=== PATIENT | female | born 1945 | race Caucasian/White ===

== ENCOUNTER 2018-04-11 12:18 | Inpatient (IN) ==
[2018-04-11] MEDS ORDERED: OXYCODONE HCL IR 5 MG TAB (IMMEDIATE RELEASE) PO PRN (16:12)
[2018-04-11] MEDS ORDERED: KETOROLAC TROMETHAMINE 15 MG/ML VIAL IV PRN (16:12)
[2018-04-11] MEDS ORDERED: predniSONE 20 MG TAB PO STA (16:20)
[2018-04-11] MEDS: ACETAMINOPHEN 500 MG TAB PO SCH ×2 (17:09→21:25)
--- NOTE | 2018-04-11 19:07 | History & Physical Report ---
Date of Service April 11, 2018 Assessment & Plan (1) Compression fracture: -Admit to [facility] -Referred as a direct admission from [facility] for management of pain control due to L1 compression fracture -Recent history as outlined in HPI -Consult spine orthopedics for possible brace recommendations -Start Tylenol [id number] with IV Toradol and p.o. oxycodone as needed for breakthrough pain -Was started on prednisone taper on 04/04, will increase to 40 mg p.o. x 5 days -Check vitamin D level -PT/OT (2) Hypothyroidism: -Continue levothyroxine (3) Dyslipidemia: -Continue statin (4) DVT prophylaxis: -SQ Lovenox History of Present Illness Chief Complaint: Intractable back pain Primary Care Provider: Mumtaz Kan 72-year-old female who was transferred from [facility] ED for evaluation of intractable back pain and L1 compression fracture. Patient reports that approximately 3 weeks ago she was lifting some heavy items in her home when she subsequently developed low back pain. She reports the pain has been progressively getting worse since that time. She was evaluated by her PCP on . Lumbar spine x-ray was obtained which was negative for acute findings and patient was started on prednisone taper and as needed Flexeril and Valium. Unfortunately she did not have any improvement with these medications and was seen in the ED on 04/08. She was also complaining of abdominal pain at that time. In the ED on 04/08, CT ABD/pelvis showing constipation. Patient was given a Dulcolax suppository. She also received a trigger point injection for her back pain and had improvement in her symptoms. Abdominal pain and distention unfortunately returned and patient was reevaluated in the ED on . Repeat abdominal x-ray demonstrated persistent constipation and patient was given an enema and lactulose. She had a very large bowel movement while in the ED and abdominal symptoms have since resolved. Patient reports she was awoken at 430 this morning with return of severe low back pain. She went back to [facility] ED where a lumbar spine x-ray demonstrated L1 compression fracture and lumbar spine MRI demonstrated mild L1 compression fracture with mild surrounding edema and L4-L5 disc protrusion without high-grade central canal narrowing. Patient was transferred to [facility] for management of pain control. At the time of my exam, patient is resting in bed. She reports her pain is currently well controlled. She reports her abdominal pain and distention have resolved. No other reported symptoms. She denies radiation of the low back pain into the lower extremities, no associated leg numbness or tingling or loss of bladder or bowel function. She denies chest pain shortness of breath. No lightheadedness, dizziness, diaphoresis, syncopal events. She denies vomiting and diarrhea. No fevers or chills. She denies urinary symptoms. Allergies Allergy/AdvReac Type Severity Reaction Status Date / Time clarithromycin [From Biaxin] Allergy Severe Swelling Verified 04/11/18 15:16 of Lip/Tongue/Throat Home Medications Home Medications Medication Instructions Recorded Confirmed Type alendronate [Fosamax] 70 mg PO WK 04/11/18 04/11/18 History aspirin 81 mg PO DAILY 04/11/18 04/11/18 History atorvastatin [Lipitor] 40 mg PO HS 04/11/18 04/11/18 History calcium carbonate-vitamin D3 1 tab PO BID 04/11/18 04/11/18 History [Calcium 500 + D] cyclobenzaprine 5 mg PO TID PRN 04/11/18 04/11/18 History diazepam 5 mg PO TID PRN 04/11/18 04/11/18 History levothyroxine 25 mcg PO DAILY 04/11/18 04/11/18 History polyethylene glycol 3350 [Miralax] 17 g PO DAILY PRN 04/11/18 04/11/18 History prednisone 20 mg PO UD 04/11/18 04/11/18 History Past Med/Surg History Medical History Osteoporosis (Chronic) Dyslipidemia (Chronic) Hypothyroidism (Chronic) Elevated cholesterol (Inactive) History of hysterectomy (Inactive) Hypothyroidism (Inactive) Surgical History History of partial hysterectomy (Chronic) Family History Family/Other Breast cancer Social History Current Living Situation: Spouse Other Information That Helps Us Care for You: No Feels Safe at Home: Yes Safety Concerns: Feels Safe At This Time Smoking Status: Never smoker Do You Dip or Chew Tobacco: No Hx Alcohol Use: No Hx Substance Use: No Beliefs That Will Affect Care: None Preferred Language: Icelandic Communication Ability: Effective Medical Van Driver Required: No Review of Systems ROS per HPI, all other systems reviewed and negative Physical Exam 2 Vital Signs (Past 24 Hours): Last Vital Signs Temp 36.7 C 04/11/18 14:50 Pulse 82 04/11/18 14:50 Resp 16 04/11/18 14:50 BP 132/74 04/11/18 14:50 Pulse Ox 90 04/11/18 14:50 Constitutional: WD/WN, vitals as above Eyes: PERRL, conjunctivae normal, anicteric sclerae ENMT: external ear and nose normal, oropharynx normal Respiratory: normal respiratory effort, lungs clear to auscultation Cardiovascular: Rate/Rhythm: regular rate and regular rhythm Vessels: normal peripheral pulses Extremities: no edema Gastrointestinal (Abdomen): normal bowel sounds, soft, nontender, no hepatosplenomegaly Musculoskeletal: no cyanosis or clubbing, extremities motor strength 5/5 Spine: + straight leg raise positive Skin: no rashes, warm and dry Neurologic: PERRL, EOMI, accommodation nl, no face palsy, no dysarthria Psychiatric: A+Ox3, euthymic affect Code Status & VTE Plan VTE Prophylaxis Plan VTE Prophylaxis will be ordered: Yes Supervising Physician Co-Signing Physician Notes Pt was seen and examined. Agreed with Stephanie JACKSON exam, assessment and plan. 72- year-old female with PMH of osteoporosis, dyslipidemia, hypothyroidism who was transferred from [facility] ED for evaluation of intractable back pain and L1 compression fracture. Pt said that she has been having back pain for about 3 weeks. She said that her back pain got worst in the last few days. Lumbar spine MRI done at [facility] demonstrated mild L1 compression fracture with mild surrounding edema and L4-L5 disc protrusion without high-grade central canal narrowing. Will continue pain control and prednisone. Will consult ortho for the L1 compression. Fall precaution. MD Tyron
[2018-04-11] MEDS: CALCIUM 600MG + VIT D 400 IU TAB PO SCH (21:25)
[2018-04-11] MEDS: DOCUSATE SODIUM 100 MG CAP PO SCH (21:25)
[2018-04-11] MEDS: ATORVASTATIN 40 MG TAB PO SCH (21:25)
[2018-04-12] MEDS: ACETAMINOPHEN 500 MG TAB PO SCH ×2 (05:39→14:01)
[2018-04-12] MEDS: LEVOTHYROXINE SODIUM 25 MCG TABLET PO SCH (05:42)
[2018-04-12 05:55] LABS: Hematocrit (blood only) 43.1 % (37-47); Hemoglobin 13.9 g/dL (12.0-16.0); Mean Corpuscular Hgb Conc 32.3 g/dL (32-36); Mean Corpuscular Volume 92.9 fL (80-100); Mean Platelet Volume 9.4 fL (7.4-10.4); Platelet Count 285 K/uL (130-400); RDW Coefficient of Variation 13.8 % (11.5-14.5); RDW Standard Deviation 46.9 fL (36.4-46.3); Red Blood Count 4.64 M/uL (4.2-5.4); White Blood Count 14.23 K/uL (4.8-10.8)
[2018-04-12 06:05] LABS: Prothrombin Time 10.5 Seconds (9.0-12.0)
[2018-04-12 06:27] LABS: BUN Creatinine Ratio 21.8 (10-20); Calcium 8.8 mg/dl (8.5-10.1); Creatinine Clr Calc Pharmacy 64.2 ml/min; Est GFR (African American) 95.6; Est GFR (Non-African American) 82.5; Potassium 4.3 mmol/L (3.5-5.1)
[2018-04-12] MEDS: ASPIRIN 81 MG ECTAB PO SCH (08:36)
[2018-04-12] MEDS: CALCIUM 600MG + VIT D 400 IU TAB PO SCH ×2 (08:36→20:35)
[2018-04-12] MEDS: predniSONE 20 MG TAB PO SCH (08:37)
[2018-04-12] MEDS: DOCUSATE SODIUM 100 MG CAP PO SCH ×2 (08:42→20:42)
[2018-04-12] MEDS: ENOXAPARIN INJ 40 MG/0.4 ML SYR SQ SCH (08:42)
[2018-04-12] MEDS: POLYETHYLENE (MIRALAX) 17 GM PACK PO SCH (08:43)
--- NOTE | 2018-04-12 08:51 | Consultation Report ---
DATE OF CONSULTATION: 04/11/2018 CHIEF COMPLAINT: Lumbar spine pain. HISTORY OF PRESENT ILLNESS: This is a delightful patient. She is 72. She had an injury to lumbar spine several weeks ago, felt it would improve, it did not. The pain became unbearable for her. She went to her local Emergency Room which is [facility] in [place] and was transferred to [facility] for pain control and evaluation. PAST MEDICAL HISTORY: Positive for hypothyroidism, osteoporosis. No hypertension, COPD, diabetes mellitus. ALLERGIES: BIAXIN. MEDICATIONS: Include aspirin, Lipitor, levothyroxine, MiraLax, and prednisone. PAST SURGICAL HISTORY: Hysterectomy. SOCIAL HISTORY: Nonsmoker, non-ETOH user, does feel safe at home. REVIEW OF SYSTEMS: She denies any blurred vision, double vision, head trauma. She denies any fever, sweats, or chills. Denies any chest pain. There is a slight nausea, but no constipation. Her extremities are intact. She has no complaints of weakness. PHYSICAL EXAMINATION: VITAL SIGNS: Stable, afebrile. HEART AND LUNG: Not auscultated. ABDOMEN: Soft, nontender, bowel sounds are slightly decreased. NEUROLOGIC: Normal, 5/5 strength, good sensation, motor ability. No deficits. DIAGNOSTIC DATA: X-rays demonstrate an acute on subacute compression fracture of the L1 vertebrae. There is no retropulsion. ASSESSMENT: L1 compression fracture. PLAN: Typically, these will respond nicely to conservative measures. We will get her fitted for a brace and pain control. I will follow her daily while she is here. I anticipate her going home within the next 24-48 hours and following up in the office. If she does fail to improve, she would be a reasonable candidate for a kyphoplasty procedure.
[2018-04-12] MEDS ORDERED: LACTULOSE SYRUP 10 GM/15 ML BTL 473 ML PO STA (17:10)
--- NOTE | 2018-04-12 17:21 | Hospitalist Progress Note ---
Date of Service April 12, 2018 Assessment & Plan (1) Compression fracture: Close compression fracture of first lumbra vertebra -Referred as a direct admission from [facility] for management of pain control due Close compression fracture of first lumbra vertebra -Orthopedic service has evaluated the L1 compression fracture and to continue management with back brace and pain medication -continue scheduled Tylenol, offer as needed IV Toradol and p.o. oxycodone for breakthrough pain -Was started on prednisone taper on 04/04/18, will continue as prednisone 40 mg daily for now -continue PT/OT Compression fracture likely a pathological fracture from osteoporosis Vitamin D levels are deficient will start vitamin D at 1000 units daily for now, possibly can benefit from vitamin D 50, 000 units q weekly as outpatient Back pain secondary to compression fracture -pain medications as above Constipation -Miralax -will give Lactulose x 1 (2) Hypothyroidism: -Continue levothyroxine (3) Dyslipidemia: -Continue statin (4) DVT prophylaxis: -SQ Lovenox Subjective Patient has not had bowel movement Patient in back brace Patient denies acute back pain. Tolerating discomfort with acetaminophen Patient able to perform some physical and occupational therapy. Patient denies chest pain or shortness of breath. denies abdominal pain. denies vomiting Physical Exam 2 Vital Signs (Past 24 Hours): Last Vital Signs Temp 36.6 C 04/12/18 16:18 Pulse 88 04/12/18 16:18 Resp 18 04/12/18 16:18 BP 138/82 04/12/18 16:18 Pulse Ox 92 04/12/18 16:18 Constitutional: WD/WN, vitals as above Eyes: normal visual ware by confrontation and EOM intact bilaterally ENMT: external ear and nose normal, oropharynx normal Neck: normal visual inspection and trachea midline Respiratory: normal respiratory effort, lungs clear to auscultation Cardiovascular: RRR, no murmur, no edema Gastrointestinal (Abdomen): normal bowel sounds, soft, nontender, no hepatosplenomegaly Musculoskeletal: back brace is worn Neurologic: PERRL, EOMI, accommodation nl, no face palsy, no dysarthria Psychiatric: A+Ox3, euthymic affect
[2018-04-12] MEDS: CHOLECALCIFEROL 1,000 UNITS TAB PO SCH (19:10)
[2018-04-12] MEDS: ACETAMINOPHEN 325 MG TAB PO SCH ×2 (19:12→22:39)
[2018-04-12] MEDS: ATORVASTATIN 40 MG TAB PO SCH (20:35)
[2018-04-13] MEDS: ACETAMINOPHEN 325 MG TAB PO SCH ×2 (03:00→05:47)
[2018-04-13] MEDS: LEVOTHYROXINE SODIUM 25 MCG TABLET PO SCH (05:47)
[2018-04-13] MEDS ORDERED: SENNA 8.6 MG TAB PO SCH (09:00)
[2018-04-13] MEDS ORDERED: DOCUSATE SODIUM 100 MG CAP PO SCH (09:00)
[2018-04-13] MEDS: CALCIUM 600MG + VIT D 400 IU TAB PO SCH (09:17)
[2018-04-13] MEDS: ENOXAPARIN INJ 40 MG/0.4 ML SYR SQ SCH (09:18)
[2018-04-13] MEDS: ASPIRIN 81 MG ECTAB PO SCH (09:18)
[2018-04-13] MEDS: predniSONE 20 MG TAB PO SCH (09:19)
[2018-04-13] MEDS: CHOLECALCIFEROL 1,000 UNITS TAB PO SCH (09:19)
[2018-04-13] MEDS: DOCUSATE SODIUM 100 MG CAP PO SCH (09:31)
[2018-04-13] MEDS: POLYETHYLENE (MIRALAX) 17 GM PACK PO SCH (09:31)
[2018-04-13] MEDS ORDERED: IBUPROFEN 200 MG TAB PO PRN (10:46)
--- NOTE | 2018-04-13 11:05 | Hospitalist Progress Note ---
Date of Service April 13, 2018 Assessment & Plan (1) Compression fracture: Close compression fracture of first lumbra vertebra -Referred as a direct admission from [facility] for management of pain control due Close compression fracture of first lumbra vertebra -Orthopedic service has evaluated the L1 compression fracture and to continue management with back brace and pain medication -was evaluated by PT/OT -pain generally controlled with Tylenol, also had on medication schedule as inpatient as needed IV Toradol and p.o. oxycodone for breakthrough pain -Was started on prednisone taper on 04/04/18, was given prednisone 40 mg daily as inpatient -Patient can also take home supply of prednisone and cyclobenzaprine for pain [place] PDMP System was checked and patient does not have any current active narcotic medications prior to this hospital presentation Patient prescribed oxycodone 5 mg every 6 hours as needed for severe pain (20 tablets prescribed) Patient prescribed ibupofen 200 mg every 6 hours as needed for moderate pain Patient prescribed acetaminophen 650 mg every 4 hours as needed for mild pain or fever -Discharge to home with back brace; Patient can take off back brace to shower and sleep -Patient should make appointment with orthopedic clinic to see Dr. Vitaliy Woods or his colleagues [facility] [address], [address] [place] [address] Compression fracture likely a pathological fracture from osteoporosis Vitamin D levels are deficient Patient should take Cholecalciferol 1000 units daily and should discuss with primary care doctor if she should start 50,000 units weekly dosing in future Back pain secondary to compression fracture -pain medications as above Constipation resolved Patient prescribed senna and docusate for constipation. Patient can take Miralax at home for constipation (2) Hypothyroidism: -Continue levothyroxine (3) Dyslipidemia: -Continue statin (4) DVT prophylaxis: -SQ Lovenox while inpatient Discharge Diagnosis Closed compression fracture of first lumbar vertebra initial encounter, Osteoporosis with current pathological fracture, Vitamin D deficiency, Constipation Discharge Instructions Discharge to home with back brace; Patient can take off back brace to shower and sleep [place] PDMP System was checked and patient does not have any current active narcotic medications prior to this hospital presentation Patient prescribed oxycodone 5 mg every 6 hours as needed for severe pain (20 tablets prescribed) Patient prescribed ibupofen 200 mg every 6 hours as needed for moderate pain Patient prescribed acetaminophen 650 mg every 4 hours as needed for mild pain or fever Patient can also take home supply of prednisone and cyclobenzaprine forpain Patient prescribed senna and docusate for constipation. Patient can take Miralax at home for constipation Patient should take Cholecalciferol 1000 units daily and should discuss with primary care doctor if she should start 50,000 units weekly dosing in future Appointment 04/18/2018 10:45 AM Provider Mumtaz Kan MD [address], [place] Patient should make appointment with orthopedic clinic to see Dr. Vitaliy Woods or his colleagues [facility] [address], [facility] [address] [place] [address] Subjective Patient made bowel movement No acute distress Patient denies chest pain or shortness of breath. denies abdominal pain. denies vomiting Physical Exam 2 Vital Signs (Past 24 Hours): Last Vital Signs Temp 36.5 C 04/13/18 07:48 Pulse 85 04/13/18 07:48 Resp 16 04/13/18 07:48 BP 126/74 04/13/18 07:48 Pulse Ox 95 04/13/18 07:48 Constitutional: WD/WN, vitals as above Eyes: normal visual ware by confrontation and EOM intact bilaterally ENMT: external ear and nose normal, oropharynx normal Neck: normal visual inspection and trachea midline Respiratory: normal respiratory effort, lungs clear to auscultation Cardiovascular: RRR, no murmur, no edema Gastrointestinal (Abdomen): normal bowel sounds, soft, nontender, no hepatosplenomegaly Musculoskeletal: no cyanosis or clubbing, extremities motor strength 5/5 (has back brace) Head/Neck/Chest: normocephalic and head atraumatic Neurologic: PERRL, EOMI, accommodation nl, no face palsy, no dysarthria Psychiatric: A+Ox3, euthymic affect
--- NOTE | 2018-04-13 11:10 | Discharge Summary ---
Date of Service April 13, 2018 Admission HPI Per Admitting Provider 72-year-old female who was transferred from [facility] ED for evaluation of intractable back pain and L1 compression fracture. Patient reports that approximately 3 weeks ago she was lifting some heavy items in her home when she subsequently developed low back pain. She reports the pain has been progressively getting worse since that time. She was evaluated by her PCP on . Lumbar spine x-ray was obtained which was negative for acute findings and patient was started on prednisone taper and as needed Flexeril and Valium. Unfortunately she did not have any improvement with these medications and was seen in the ED on 04/08. She was also complaining of abdominal pain at that time. In the ED on 04/08, CT ABD/pelvis showing constipation. Patient was given a Dulcolax suppository. She also received a trigger point injection for her back pain and had improvement in her symptoms. Abdominal pain and distention unfortunately returned and patient was reevaluated in the ED on . Repeat abdominal x-ray demonstrated persistent constipation and patient was given an enema and lactulose. She had a very large bowel movement while in the ED and abdominal symptoms have since resolved. Patient reports she was awoken at 430 this morning with return of severe low back pain. She went back to [facility] ED where a lumbar spine x-ray demonstrated L1 compression fracture and lumbar spine MRI demonstrated mild L1 compression fracture with mild surrounding edema and L4-L5 disc protrusion without high-grade central canal narrowing. Patient was transferred to [facility] for management of pain control. At the time of my exam, patient is resting in bed. She reports her pain is currently well controlled. She reports her abdominal pain and distention have resolved. No other reported symptoms. She denies radiation of the low back pain into the lower extremities, no associated leg numbness or tingling or loss of bladder or bowel function. She denies chest pain shortness of breath. No lightheadedness, dizziness, diaphoresis, syncopal events. She denies vomiting and diarrhea. No fevers or chills. She denies urinary symptoms. Admission Exam Per Admitting Provider Constitutional: WD/WN, vitals as above Eyes: PERRL, conjunctivae normal, anicteric sclerae ENMT: external ear and nose normal, oropharynx normal Respiratory: normal respiratory effort, lungs clear to auscultation Cardiovascular: Rate/Rhythm: regular rate and regular rhythm Vessels: normal peripheral pulses Extremities: no edema Gastrointestinal (Abdomen): normal bowel sounds, soft, nontender, no hepatosplenomegaly Musculoskeletal: no cyanosis or clubbing, extremities motor strength 5/5 Spine: + straight leg raise positive Skin: no rashes, warm and dry Neurologic: PERRL, EOMI, accommodation nl, no face palsy, no dysarthria Psychiatric: A+Ox3, euthymic affect Principal Diagnosis Closed compression fracture of first lumbar vertebra initial encounter, Osteoporosis with current pathological fracture, Vitamin D deficiency, Constipation Discharge Exam Constitutional WD/WN, vitals as above Eyes normal visual ware by confrontation and EOM intact bilaterally ENMT external ear and nose normal, oropharynx normal Neck normal visual inspection and trachea midline Respiratory normal respiratory effort, lungs clear to auscultation Cardiovascular RRR, no murmur, no edema Gastrointestinal (Abdomen) normal bowel sounds, soft, nontender, no hepatosplenomegaly Musculoskeletal no cyanosis or clubbing, extremities motor strength 5/5 (has back brace) Head/Neck/Chest: normocephalic and head atraumatic Neurologic PERRL, EOMI, accommodation nl, no face palsy, no dysarthria Psychiatric A+Ox3, euthymic affect Discharge Data Allergies Allergy/AdvReac Type Severity Reaction Status Date / Time clarithromycin [From Biaxin] Allergy Severe Swelling Verified 04/11/18 15:16 of Lip/Tongue/Throat Consultations 04/11/18 15:46 Consult Orthopedic Surgery Routine 04/11/18 15:47 Consult Case Management - Discharge Planning Routine Hospital Course (1) Compression fracture: Close compression fracture of first lumbra vertebra -Referred as a direct admission from [facility] for management of pain control due Close compression fracture of first lumbra vertebra -Orthopedic service has evaluated the L1 compression fracture and to continue management with back brace and pain medication -was evaluated by PT/OT -pain generally controlled with Tylenol, also had on medication schedule as inpatient as needed IV Toradol and p.o. oxycodone for breakthrough pain -Was started on prednisone taper on 04/04/18, was given prednisone 40 mg daily as inpatient -Patient can also take home supply of prednisone and cyclobenzaprine for pain [place] PDMP System was checked and patient does not have any current active narcotic medications prior to this hospital presentation Patient prescribed oxycodone 5 mg every 6 hours as needed for severe pain (20 tablets prescribed) Patient prescribed ibupofen 200 mg every 6 hours as needed for moderate pain Patient prescribed acetaminophen 650 mg every 4 hours as needed for mild pain or fever -Discharge to home with back brace; Patient can take off back brace to shower and sleep -Patient should make appointment with orthopedic clinic to see Dr. Vitaliy Woods or his colleagues [facility] [address] [place] [address] Compression fracture likely a pathological fracture from osteoporosis Vitamin D levels are deficient Patient should take Cholecalciferol 1000 units daily and should discuss with primary care doctor if she should start 50,000 units weekly dosing in future Back pain secondary to compression fracture -pain medications as above Constipation resolved Patient prescribed senna and docusate for constipation. Patient can take Miralax at home for constipation (2) Hypothyroidism: -Continue levothyroxine (3) Dyslipidemia: -Continue statin (4) DVT prophylaxis: -SQ Lovenox while inpatient Discharge Diagnosis Closed compression fracture of first lumbar vertebra initial encounter, Osteoporosis with current pathological fracture, Vitamin D deficiency, Constipation Discharge Instructions Discharge to home with back brace; Patient can take off back brace to shower and sleep [place] PDMP System was checked and patient does not have any current active narcotic medications prior to this hospital presentation Patient prescribed oxycodone 5 mg every 6 hours as needed for severe pain (20 tablets prescribed) Patient prescribed ibupofen 200 mg every 6 hours as needed for moderate pain Patient prescribed acetaminophen 650 mg every 4 hours as needed for mild pain or fever Patient can also take home supply of prednisone and cyclobenzaprine forpain Patient prescribed senna and docusate for constipation. Patient can take Miralax at home for constipation Patient should take Cholecalciferol 1000 units daily and should discuss with primary care doctor if she should start 50,000 units weekly dosing in future Appointment 04/18/2018 10:45 AM Provider Mumtaz Kan MD Department Family Practice [facility] [place] Patient should make appointment with orthopedic clinic to see Dr. Vitaliy Woods or his colleagues [facility] [address], [address] [place] [address] Total Time Total Time Spent Total Time Spent (In Minutes): 40 minutes Total Time Includes: Examination of the Patient, Discharge Planning and Medication Reconciliation Discharge Plan Discharge Items Patient Disposition: Home - Self-Care Reason For Visit: BACK PAIN Discharge Diagnosis: Closed compression fracture of first lumbar vertebra initial encounter, Osteoporosis with current pathological fracture, Vitamin D deficiency, Constipation Condition: Good Discharge Goals: Improve disease control and Improve function Activity: Resume your previous activity Non-emergency contact: Primary Care Provider and Specialist Call non-emergency contact if: you have any medication questions Follow-up/Referrals: Mumtaz Kan M.D. [Primary Care Provider] - Diet: Regular Addtl Provider Instructions: Discharge to home with back brace; Patient can take off back brace [facility] does not have any current active narcotic medications prior to this hospital presentation Patient prescribed oxycodone 5 mg every 6 hours as needed for severe pain (20 tablets prescribed) Patient prescribed ibupofen 200 mg every 6 hours as needed for moderate pain Patient prescribed acetaminophen 650 mg every 4 hours as needed for mild pain or fever Patient can also take home supply of prednisone and cyclobenzaprine forpain Patient prescribed senna and docusate for constipation. Patient can take Miralax at home for constipation Patient should take Cholecalciferol 1000 units daily and should discuss with primary care doctor if she should start 50,000 units weekly dosing in future Appointment 04/18/2018 10:45 AM Provider Mumtaz Kan MD Department Family Practice [facility] [place] Patient should make appointment with orthopedic clinic to see Dr. Vitaliy Woods or his colleagues [facility] [address] [place] [address] Prescriptions: New sennosides [Senokot] 8.6 mg Tablet 17.2 mg PO QAM 30 Days Qty: 60 RF: 0 acetaminophen [Mapap (acetaminophen)] 325 mg Tablet 650 mg PO Q4H PRN (Reason: fever or pain) 5 Days Qty: 60 RF: 0 docusate sodium 100 mg Capsule 100 mg PO BID 30 Days Qty: 60 RF: 0 oxycodone 5 mg Tablet 5 mg PO Q6H PRN (Reason: severe pain) 3 Days Qty: 24 RF: 0 cholecalciferol (vitamin D3) [Vitamin D3] 1,000 unit Tablet 1,000 unit PO QAM 30 Days Qty: 30 RF: 0 ibuprofen 200 mg Tablet 200 mg PO Q6H PRN (Reason: moderate pain) 5 Days Qty: 20 RF: 0 Continue atorvastatin [Lipitor] 40 mg Tablet 40 mg PO HS RF: 0 polyethylene glycol 3350 [Miralax] 17 gram Powder In Packet 17 g PO DAILY PRN (Reason: Constipation) RF: 0 levothyroxine 25 mcg Tablet 25 mcg PO DAILY RF: 0 prednisone 20 mg tablet 20 mg PO UD RF: 0 alendronate [Fosamax] 70 mg Tablet 70 mg PO WK RF: 0 aspirin 81 mg Tablet,Delayed Release (Dr/Ec) 81 mg PO DAILY RF: 0 diazepam 5 mg tablet 5 mg PO TID PRN (Reason: Muscle Spasm) RF: 0 cyclobenzaprine 5 mg tablet 5 mg PO TID PRN (Reason: Muscle Spasm) RF: 0 calcium carbonate-vitamin D3 [Calcium 500 + D] 500 mg(1,250mg) -200 unit Tablet 1 tab PO BID RF: 0 Stand-Alone Forms: [facility] Discharge Orders: Discharge Order (Routine); Ordered 04/13/18 Ordered By: Dg Lam Admission Data Admit Date/Time: 04/11/18 15:46 Attending Provider: Dg Lam Admit Provider: Prerna Ackerman Primary Care Provider: Mumtaz Kan Other Providers: Vitaliy Woods Service: Medical
== END 2018-04-13 11:41 | disposition home or self-care (01) | DRG 544 ==
LOC: 3W → SUATTDRO 15:46

== ENCOUNTER 2020-07-01 09:46 | Inpatient (IN) ==
[2020-07-01] MEDS ORDERED: HYDROmorphone INJ 0.5 MG/0.5 ML SYR IV PRN (10:12)
[2020-07-01] MEDS ORDERED: ONDANSETRON INJ 2 MG/ML 2 ML VIAL IV STA (10:12)
[2020-07-01] MEDS ORDERED: SODIUM CHLORIDE 0.9% 1000ML 500 ML IV ONE (10:14)
--- NOTE | 2020-07-01 10:18 | Emergency Department Note ---
Impression & Plan Compression fracture, Osteoporosis, Intractable back pain ED Provider Note NAME: LEYLA MCCLURE AGE: 74 SEX: F : 1945 ARRIVES VIA: Walk-In INFORMANT: Patient, ED PROVIDER(S): Rajiv Garcia MD CHIEF COMPLAINT: L1 fracture HPI: This is a 74-year-old female who has a history of osteoporosis that presents to the emergency department with increasing back pain. The patient reports she was just at her orthopedic office. She reports that she had x-rays done (although these appear to be MRIs) and that these show a new L1 fracture. The patient was then sent to the emergency department for "blood work". She reports the pain started on Tuesday. She reports pain worsens with any type of movement of her spine. She has been taken Tylenol as well as Aleve without improvement in her symptoms. She reports she last had Tylenol this morning. She describes the pain as an aching sensation with radiation outwards. ROS: See above HPI for pertinent positives & negatives. A total of 10 systems r eviewed and were otherwise negative. PAST MEDICAL HISTORY: See Below PAST SURGICAL HISTORY: See Below FAMILY HISTORY: See Below SOCIAL HISTORY: See Below HOME MEDICATIONS: See Below ALLERGIES: See Below VITALS: See Below PHYSICAL EXAMINATION: VITAL SIGNS - Vital signs and nursing notes were reviewed. GENERAL - 74-year-old female appearing stated age who is in no acute distress. Communicates well with provider and answers questions appropriately. SKIN - Without rashes. HEAD - NC/AT. EYES - PERRL with EOMI bilaterally. Sclera anicteric. Palpebral conjunctiva pink and moist with no injection noted. EARS - No deformities of external structures noted on gross examination bilaterally. No pain elicited with palpation of the tragus bilaterally. External auditory canals without discharge or otorrhea. Tympanic membranes pearly wetzel without retraction or bulging. No fluid or purulent material visualized behind the TM. Handle of malleus, umbo, cone of light, pars tensa/flaccid all easily visualized. NOSE - Midline and without cyanosis. No epistaxis or purulent drainage noted. Septum midline without deviation or septal hematoma noted. MOUTH/OROPHARYNX - Without perioral cyanosis. Buccal mucosa pink and moist and without leukoplakia. Tongue midline with equal elevation of palate bilaterally. No tonsillar hypertrophy, erythema, or exudates noted. NECK - Neck with FROM. Supple to palpation. No nuchal rigidity. LUNGS - Chest wall symmetric without accessory muscle use, intercostals retractions, or central cyanosis. Normal vesicular breath sounds CTA B/L. No wheezes, rales, or rhonchi appreciated. CARDIAC - RRR with S1/S2. No murmur, rubs, or gallops appreciated. ABDOMEN - Abdominal contour without pulsations or visible masses. BS normoactive all four quadrants. No tenderness, palpable masses, hepatosplenomegaly, or ascites noted. EXTREMITIES - No clubbing or peripheral cyanosis. No pretibial edema present. +3/5 radial, posterior tibial, and dorsalis pedis pulses palpated throughout. +5/5 strength noted in UE/LE bilaterally. NEUROLOGIC - Cranial nerves II through XII grossly intact. Sensory intact to light touch throughout. Patellar reflexes +2/4. PSYCH - A&Ox3 and cooperates fully with examiner. Pt is very pleasant and interacts well with examiner. MEDICAL DECISION MAKING: Patient was seen and evaluated as above in room C8. Review was performed of nursing notes and vital signs. I did review pertinent previous visits and pat ient history. After obtaining a thorough history and physical examination the above work up was performed. This 74-year-old female who presents the emergency department complaining of multiple back fractures. Her orthopedic surgeon sent her in to rule out multiple myeloma. To make sure this were not pathologic fractures the patient was sent for CAT scan of the chest as well as abdomen pelvis however this does not show any evidence of lesions. The patient does have multiple back fractures. She was given Dilaudid here for her pain. Repeat examination revealed improvement in the patient's symptoms. I did discuss the case with the hospitalist service who did agree to admit the patient. Patient and family are in agreement with the treatment plan. An order was placed for continuous cardiac monitoring. The monitor shows a rate of 81 with Normal SInus rhythm. Triage Nursing notes reviewed. Prior medical records reviewed Vital Signs: reviewed and remarkable for no significant abnormalities Differential diagnosis: Infection, dehydration, metabolic abnormality, hypo/hyperglycemia, electrolyte disturbance, anemia, hypoxia, cardiac sources, intracerebral event, toxicologic, neurologic, as well as other pathologies. ER treatment provided: See below Diagnostics interpreted by me: ECG: EKG shows normal sinus rhythm normal EKG QTC is 445 ventricular rate is 73, no ST elevation or depression EKG is compared to 05/12/2020 no significant change was found. Laboratory studies: As stated above and show below. 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, under surveillance Osteoporosis Osteoporosis Restless leg syndrome Surgical History H/O kyphoplasty History of colonoscopy History of esophagogastroduodenoscopy (EGD) History of partial hysterectomy History of tonsillectomy and adenoidectomy Family History Family/Other Breast cancer Other No family history of adverse response to anesthesia Social History Smoking Status: Never smoker Second Hand Exposure: Yes ( A CHILD FOR SHORT PERIOD); Hx Alcohol Use: No Hx Substance Use: No Preferred Language: Georgian Communication Ability: Effective 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 Required: No Beliefs That Will Affect Care: None marital status: Current Living Situation: Spouse Feels Safe at Home: Yes Assistive Devices: Glasses Allergies Allergies Allergy/AdvReac Type Severity Reaction Status Date / Time clarithromycin [From Biaxin] Allergy Severe Swelling Verified 07/01/20 11:13 of Lip/Tongue/Throat Home Meds Home Medications Medication Instructions Recorded Confirmed atorvastatin [Lipitor] 40 mg PO HS 04/11/18 07/01/20 calcium carbonate-vitamin D3 1 tab PO BID 04/11/18 07/01/20 [Calcium 500 + D] levothyroxine 25 mcg PO QAM 04/11/18 07/01/20 polyethylene glycol 3350 [Miralax] 17 g PO DAILY PRN 04/11/18 07/01/20 [place] 1 spray NA QAM 05/09/20 07/01/20 Prolia 60 mg SUBCUT UD 05/09/20 07/01/20 cholecalciferol (vitamin D3) 25 mcg PO QAM 05/09/20 07/01/20 [Vitamin D3] omeprazole 20 mg PO BID 05/09/20 07/01/20 Results & Data (ED) Vital Signs Vital Signs - 24 hr 07/01/20 09:56 07/01/20 10:31 07/01/20 12:44 Temperature 36.5 C Temperature Source Temporal Artery Scan Pulse Rate 81 64 Pulse Rate from SpO2 Sensor 65 Respiratory Rate 18 17 Blood Pressure 152/73 H 146/74 H Blood Pressure Mean 99 98 Pulse Oximetry 99 99 95 Oxygen Delivery Method Room Air Room Air Sepsis Recent Fever Within 48 Hours No Sepsis New/Unexplained Change in Mental Status N/A Sepsis Action Taken by Nursing No Action Required 07/01/20 13:30 07/01/20 14:36 Temperature Temperature Source Pulse Rate 69 63 Pulse Rate from SpO2 Sensor 70 Respiratory Rate 16 14 Blood Pressure 145/71 H Blood Pressure Mean 95 Pulse Oximetry 95 96 Oxygen Delivery Method Room Air Sepsis Recent Fever Within 48 Hours Sepsis New/Unexplained Change in Mental Status Sepsis Action Taken by Correction Medications Current Medication List: was personally reviewed by me Laboratory Data Attestation: I reviewed the patient's lab results. Result diagrams: 07/01/20 10:12 07/01/20 10:40 Lab Results 07/01/20 07/01/20 07/01/20 Range/Units 10:12 10:40 10:40 WBC 8.00 (4.8-10.8) K/uL RBC 4.28 (4.2-5.4) M/uL Hgb 13.1 (12.0-16.0) g/dL Hct 40.5 (37-47) % MCV 94.6 (80-100) fL MCH 30.6 (25-34) pg MCHC 32.3 (32-36) g/dL RDW Std Deviation 49.6 H (36.4-46.3) fL RDW Coeff of Daniel 14.3 (11.5-14.5) % Plt Count 306 (130-400) K/uL MPV 9.9 (7.4-10.4) fL Immature Gran % (Auto) 0.3 % Neut % (Auto) 40.1 % Lymph % (Auto) 30.5 % Faulk % (Auto) 25.5 % Eos % (Auto) 2.3 % Baso % (Auto) 1.3 % Neut # (Auto) 3.22 (1.4-6.5) K/uL Lymph # (Auto) 2.44 (1.2-3.4) K/uL Faulk # (Auto) 2.04 H (0.11-0.59) K/uL Eos # (Auto) 0.18 (0-0.5) K/uL Baso # (Auto) 0.10 (0-0.2) K/uL Immature Gran # (Auto) 0.02 (0.00-0.02) K/uL Sodium 141 (136-145) mmol/L Potassium 3.8 (3.5-5.1) mmol/L Chloride 110 H (98-107) mmol/L Carbon Dioxide 24 (21-32) mmol/L Anion Gap 7.0 (3-11) BUN 12 (7-18) mg/dl Creatinine 0.48 L (0.6-1.2) mg/dl Est Cr Clr Drug Dosing 82.5 ml/min Est GFR ( Amer) 110.4 Est GFR (Non-Af Amer) 95.3 BUN/Creatinine Ratio 24.9 H (10-20) Glucose 87 (70-99) mg/dl Calcium 9.0 (8.5-10.1) mg/dl Total Bilirubin 0.9 (0.2-1) mg/dl AST 16 (15-37) U/L ALT 19 (12-78) U/L Alkaline Phosphatase 112 (45-117) U/L Troponin I < 0.015 (0-0.045) ng/ml Total Protein 7.9 (6.4-8.2) gm/dl Total Protein (PEP) Cancelled Albumin 3.9 (3.4-5.0) gm/dl Albumin (PEP) Cancelled Globulin 4.0 (2.5-4.0) gm/dl Albumin/Globulin Ratio 1.0 (0.9-2) Hpgov-6-Smtyfjrjv Cancelled Hqqqr-7-Yvevunycn Cancelled Dhoa-5-Feojlepu Cancelled Hnbm-9-Ggsowifc Cancelled Gamma Globulins Cancelled Monoclonal Peak 3 Cancelled Ser Monoclonl Protein Cancelled Ser Monoclonal Prot 2 Cancelled PEP Interpretation Cancelled TSH 2.850 (0.300-4.500) uIu/ml Urine Color Urine Appearance (Clear) Urine pH (4.5-7.5) Ur Specific [place] (1.000-1.030) Urine Protein (Negative) Urine Glucose (UA) (Negative) Urine Ketones (Negative) Urine Blood (Negative) Urine Nitrite (Negative) Urine Bilirubin (Negative) Urine Urobilinogen (Negative) Ur Leukocyte Esterase (Negative) Urine WBC (Auto) (0-5) /hpf Urine RBC (Auto) (0-4) /hpf U Hyaline Cast (Auto) (0-5) /lpf U Epithel Cells (Auto) (0-5) /lpf Urine Bacteria (Auto) (Negative) COVID-19 Eval Order SARS-CoV-2 (PCR) (Negative) Influenza Type A (PCR) (Neg) Influenza Type B (PCR) (Neg) RSV (RT-PCR) (Neg) 07/01/20 07/01/20 07/01/20 Range/Units 12:16 12:50 12:50 WBC (4.8-10.8) K/uL RBC (4.2-5.4) M/uL Hgb (12.0-16.0) g/dL Hct (37-47) % MCV (80-100) fL MCH (25-34) pg MCHC (32-36) g/dL RDW Std Deviation (36.4-46.3) fL RDW Coeff of Daniel (11.5-14.5) % Plt Count (130-400) K/uL MPV (7.4-10.4) fL Immature Gran % (Auto) % Neut % (Auto) % Lymph % (Auto) % Faulk % (Auto) % Eos % (Auto) % Baso % (Auto) % Neut # (Auto) (1.4-6.5) K/uL Lymph # (Auto) (1.2-3.4) K/uL Faulk # (Auto) (0.11-0.59) K/uL Eos # (Auto) (0-0.5) K/uL Baso # (Auto) (0-0.2) K/uL Immature Gran # (Auto) (0.00-0.02) K/uL Sodium (136-145) mmol/L Potassium (3.5-5.1) mmol/L Chloride (98-107) mmol/L Carbon Dioxide (21-32) mmol/L Anion Gap (3-11) BUN (7-18) mg/dl Creatinine (0.6-1.2) mg/dl Est Cr Clr Drug Dosing ml/min Est GFR ( Amer) Est GFR (Non-Af Amer) BUN/Creatinine Ratio (10-20) Glucose (70-99) mg/dl Calcium (8.5-10.1) mg/dl Total Bilirubin (0.2-1) mg/dl AST (15-37) U/L ALT (12-78) U/L Alkaline Phosphatase (45-117) U/L Troponin I (0-0.045) ng/ml Total Protein (6.4-8.2) gm/dl Total Protein (PEP) Albumin (3.4-5.0) gm/dl Albumin (PEP) Globulin (2.5-4.0) gm/dl Albumin/Globulin Ratio (0.9-2) Wcxcc-3-Qojkooljr Moaje-0-Dumxlzput Iidu-5-Cyaiqhxc Fnet-4-Nsnehekr Gamma Globulins Monoclonal Peak 3 Ser Monoclonl Protein Ser Monoclonal Prot 2 PEP Interpretation TSH (0.300-4.500) uIu/ml Urine Color Yellow Urine Appearance Clear (Clear) Urine pH 7.0 (4.5-7.5) Ur Specific [place] 1.013 (1.000-1.030) Urine Protein Negative (Negative) Urine Glucose (UA) Negative (Negative) Urine Ketones Negative (Negative) Urine Blood Trace H (Negative) Urine Nitrite Negative (Negative) Urine Bilirubin Negative (Negative) Urine Urobilinogen Negative (Negative) Ur Leukocyte Esterase Negative (Negative) Urine WBC (Auto) 1-5 (0-5) /hpf Urine RBC (Auto) 0-4 (0-4) /hpf U Hyaline Cast (Auto) 1-5 (0-5) /lpf U Epithel Cells (Auto) 0-5 (0-5) /lpf Urine Bacteria (Auto) Negative (Negative) COVID-19 Eval Order [facility]Rsv at [facility] SARS-CoV-2 (PCR) NEGATIVE (Negative) Influenza Type A (PCR) Negative (Neg) Influenza Type B (PCR) Negative (Neg) RSV (RT-PCR) Negative (Neg) Administered Medications Lidocaine (Lidocaine 5% 1 Patch) 1 patch TD QAM ANTONIETTA Stop: 07/31/20 10:14 Last Admin: 07/01/20 10:46 Dose: 1 patch Documented by: [id number] Discontinued Medications Hydromorphone HCl (Hydromorphone Inj 0.5 Mg/0.5 Ml Syr) 0.5 mg IV Q15M PRN PRN Reason: Pain Stop: 07/15/20 10:11 Last Admin: 07/01/20 10:46 Dose: 0.5 mg Documented by: [id number] Sodium Chloride (Nss 1000ml) 500 mls @ 999 mls/hr IV .Q31M ONE Stop: 07/01/20 10:44 Last Infusion: 07/01/20 12:17 Dose: 0 mls/hr Documented by: [id number] Admin: 07/01/20 10:46 Dose: 999 mls/hr Documented by: [id number] Ioversol (Optiray 300 100ml) 89 ml IV ONCE ONE Stop: 07/01/20 11:54 Last Admin: 07/01/20 11:53 Dose: 89 ml Documented by: [id number] Ondansetron HCl (Ondansetron Inj 2 Mg/Ml 2 Ml Vial) 4 mg IV NOW STA Stop: 07/01/20 10:13 Last Admin: 07/01/20 10:46 Dose: 4 mg Documented by: [id number] Imaging Data Radiologist's Impression: Abdomen/Pelvis CT 07/01/20 10:12 CT SCAN OF THE ABDOMEN AND PELVIS WITH IV CONTRAST; CT SCAN OF THE LUMBAR SPINE WITHOUT IV CONTRAST CLINICAL HISTORY: Low back pain. Reported history of pathologic fracture. COMPARISON STUDY: No priors. TECHNIQUE: Following the IV administration of 89 cc of Optiray 300, CT scan of the abdomen and pelvis is performed from the lung bases to the proximal femora. Additionally, CT scan of the lumbar spine is performed from the lower thoracic spine to sacrum. Images for both examinations are reviewed in the axial, sagittal, and coronal planes. IV contrast was administered without complication. A dose lowering technique was utilized adhering to the principles of ALARA. FINDINGS: Lung bases: The heart is mildly enlarged and without pericardial effusion. The lung bases are clear noting bibasilar scarring/atelectasis. There is a moderate hiatal hernia. Liver: The contrast-enhanced liver is normal in size, contour, and attenuation. There is no intrahepatic biliary ductal dilatation. The hepatic veins and portal veins are patent. There our 3 indeterminant hepatic hypodensities which measure up to 1.0 cm. Gallbladder: Unremarkable. Spleen: Normal in size and attenuation. Pancreas: Unremarkable. Adrenal glands: Unremarkable. Kidneys: The contrast enhanced kidneys are normal in size and without hydronephrosis. The kidneys enhance symmetrically. A retroaortic left renal vein is incidentally noted. A 3 mm nonobstructing calculus is noted in the interpolar right kidney. A 1.6 cm cyst is noted in the left upper pole. Abdominal vasculature: The abdominal aorta is normal in course and caliber noting moderate atherosclerotic calcification. Bowel: There is mild colonic diverticulosis without CT evidence of acute di verticulitis. No bowel obstruction is seen. Mild to moderate fecal retention is noted throughout the colon. The appendix is not visualized. Peritoneum: There is no intraperitoneal free air or abdominal ascites. There is a fat-containing umbilical hernia. Lymphadenopathy: None. Pelvic viscera: The bladder is distended but otherwise normal in appearance. The uterus is surgically absent. No adnexal lesion is seen. Skeletal structures: The skeletal structures are osteopenic. No lytic or blastic lesions are seen. Vertebroplasty change is partially visualized and body of T8. There is a minimal chronic inferior endplate compression deformity of T12. See below for discussion of the lumbar spine. The bony pelvis and proximal femora appear intact. There is a healed right pubic ring fracture. LUMBAR SPINE: There is a chronic compression deformity of L1 with mild loss of height and evidence of previous vertebroplasty. Fragments are retropulsed by up to 6 mm. There is an acute to subacute appearing compression fracture of L3 with fjnd-fj-dybpgnwp loss of height and fragments retropulsed by up to 5 mm. Paravertebral edema is noted at this level. There is a minimal superior end plate compression deformity of L2. A large hemangioma is noted in the body of L4 and a mild compression deformity of L1. These are age indeterminant. A small hemangioma is seen in the body of T12. The transverse and spinous processes are intact. There is no evidence of spondylolysis. The disc spaces appear maintained. There is no CT evidence of large disc herniation. Mild facet arthro janis is noted in the lower lumbar region. There is fatty atrophy of the paraspinous musculature. IMPRESSION: 1. There are no acute infectious or inflammatory findings in the abdomen or pelvis. 2. There is an acute to subacute appearing compression fracture of L3 with mild to moderate loss of height and retropulsed fragments up to 5 mm. 3. Additional chronic appearing thoracolumbar compression deformities as above with evidence of previous vertebroplasty. 4. No destructive bony lesion is identified to suggest pathologic fracture. Correlation with the patient's medical/oncological history will be required. 5. Right-sided nephrolithiasis. 6. Bladder distention. 7. Colonic diverticulosis without CT evidence of acute diverticulitis. 8. Additional findings as above. ACT 112: Negative or not required by law. Electronically signed by: Alejandro Hoover M.D. 07/01/2020 12:[address] 07/01/20 10:12 CT OF THE CHEST WITH IV CONTRAST CLINICAL HISTORY: L1 pathologic fracture COMPARISON STUDY: No previous studies for comparison. TECHNIQUE: Following IV administration of 89 mL of Optiray, helical axial images of the chest were obtained. Sagittal and coronal reconstructions were viewed as well as maximal intensity projections on an independent 3-D workstation. Automated exposure control was utilized for the study. A dose lowering technique was utilized adhering to the principles of ALARA. FINDINGS: No enlarged axillary, mediastinal or hilar lymph nodes are present. The heart is mildly enlarged. A moderate sized hiatal hernia is present. There is no pneumothorax or pleural effusion. Linear and groundglass opacities within the lungs favor atelectasis. The central airways are patent. There are no foci of consolidation to suggest pneumonia. CT of the abdomen and pelvis and thoracic spine will be reported separately. A T5 compression fracture is noted. There are old compression fractures of T8 and L1 status post vertebroplasty at these levels. IMPRESSION: 1. No acute process within the chest. 2. Multiple thoracic and lumbar spine compression fractures better depicted on t he spine CTs. Please see this report for further description. 3. Moderate sized hiatal hernia. 4. Mild cardiomegaly. ACT 112: Negative or not required by law. Electronically signed by: Jamar Linares M.D. 07/01/2020 12:[address] 07/01/20 10:12 CT SCAN OF THE ABDOMEN AND PELVIS WITH IV CONTRAST; CT SCAN OF THE LUMBAR SPINE WITHOUT IV CONTRAST CLINICAL HISTORY: Low back pain. Reported history of pathologic fracture. COMPARISON STUDY: No priors. TECHNIQUE: Following the IV administration of 89 cc of Optiray 300, CT scan of the abdomen and pelvis is performed from the lung bases to the proximal femora. Additionally, CT scan of the lumbar spine is performed from the lower thoracic spine to sacrum. Images for both examinations are reviewed in the axial, sagittal, and coronal planes. IV contrast was administered without complication. A dose lowering technique was utilized adhering to the principles of ALARA. FINDINGS: Lung bases: The heart is mildly enlarged and without pericardial effusion. The lung bases are clear noting bibasilar scarring/atelectasis. There is a moderate hiatal hernia. Liver: The contrast-enhanced liver is normal in size, contour, and attenuation. There is no intrahepatic biliary ductal dilatation. The hepatic veins and portal veins are patent. There our 3 indeterminant hepatic hypodensities which measure up to 1.0 cm. Gallbladder: Unremarkable. Spleen: Normal in size and attenuation. Pancreas: Unremarkable. Adrenal glands: Unremarkable. Kidneys: The contrast enhanced kidneys are normal in size and without hydronephrosis. The kidneys enhance symmetrically. A retroaortic left renal vein is incidentally noted. A 3 mm nonobstructing calculus is noted in the interpolar right kidney. A 1.6 cm cyst is noted in the left upper pole. Abdominal vasculature: The abdominal aorta is normal in course and caliber no ting moderate atherosclerotic calcification. Bowel: There is mild colonic diverticulosis without CT evidence of acute diverticulitis. No bowel obstruction is seen. Mild to moderate fecal retention is noted throughout the colon. The appendix is not visualized. Peritoneum: There is no intraperitoneal free air or abdominal ascites. There is a fat-containing umbilical hernia. Lymphadenopathy: None. Pelvic viscera: The bladder is distended but otherwise normal in appearance. The uterus is surgically absent. No adnexal lesion is seen. Skeletal structures: The skeletal structures are osteopenic. No lytic or blastic lesions are seen. Vertebroplasty change is partially visualized and body of T8. There is a minimal chronic inferior endplate compression deformity of T12. See below for discussion of the lumbar spine. The bony pelvis and proximal femora appear intact. There is a healed right pubic ring fracture. LUMBAR SPINE: There is a chronic compression deformity of L1 with mild loss of height and evidence of previous vertebroplasty. Fragments are retropulsed by up to 6 mm. There is an acute to subacute appearing compression fracture of L3 with [id number] loss of height and fragments retropulsed by up to 5 mm. Paravertebral edema is noted at this level. There is a minimal superior end plate compression deformity of L2. A large hemangioma is noted in the body of L4 and a mild compression deformity of L1. These are age indeterminant. A small hemangioma is seen in the body of T12. The transverse and spinous processes are intact. There is no evidence of spondylolysis. The disc spaces appear maintained. There is no CT evidence of large disc herniation. Mild facet arthropathy is noted in the lower lumbar region. There is fatty atrophy of the paraspinous musculature. IMPRESSION: 1. There are no acute infectious or inflammatory findings in the abdomen or p camille. 2. There is an acute to subacute appearing compression fracture of L3 with mild to moderate loss of height and retropulsed fragments up to 5 mm. 3. Additional chronic appearing thoracolumbar compression deformities as above with evidence of previous vertebroplasty. 4. No destructive bony lesion is identified to suggest pathologic fracture. Correlation with the patient's medical/oncological history will be required. 5. Right-sided nephrolithiasis. 6. Bladder distention. 7. Colonic diverticulosis without CT evidence of acute diverticulitis. 8. Additional findings as above. ACT 112: Negative or not required by law. Electronically signed by: Alejandro Hoover M.D. 07/01/2020 12:[address] 07/01/20 10:[address] CLINICAL HISTORY: T8, L1 fracture COMPARISON STUDY: Thoracic spine fluoroscopic images May 16, 2020. TECHNIQUE: Images of the thoracic spine were obtained. Sagittal and coronal reconstructions were viewed. Automated exposure control was utilized for the study. A dose lowering technique was utilized adhering to the principles of ALARA. FINDINGS: Note is made of old T8 and L1 compression fracture status post vertebroplasty at these levels. Note is made of a 4 mm of retropulsion at the level of the superior endplate of L1. There is slight concavity of the inferior endplate of T12. Note is made of a severe T5 compression fracture is 75% loss of vertebral body height. There is 3 mm of retropulsion at the level of the superior endplate of T5. There is no significant central canal stenosis. No additional thoracic spine fractures are present. Facet joints are intact. Mild multilevel degenerative changes are present. Chest CT will be reported separately. IMPRESSION: 1. Age indeterminate severe compression fracture of T5 with 75% loss of vertebral body height and minimal retropulsion of 3 mm. 2. Old T8 and L1 compression fracture status post vertebroplasty at these levels. 3. Mild concavity of the inferior endplate of T12. ACT 112: Negative or not required by law. Electronically signed by: Jamar Linares M.D. 07/01/2020 12:22 PM Discharge Plan Visit Data Chief Complaint: Back Injury/Pain Stated Complaint: SEVERE BACK PAIN ED Provider: Rajiv Garcia Discharge Problem: Compression fracture, Osteoporosis, Intractable back pain Patient Disposition: Admitted As Inpatient Discharge Instructions Interventions: ED Discharge Assessment Last Done: 07/01/20 15:41 Discharge Problem: Osteoporosis Qualifiers: Osteoporosis type: unspecified Presence of current pathological fracture: unspecified Qualified Code(s): M81.0 - Age-related osteoporosis without current pathological fracture
[2020-07-01] MEDS: LIDOCAINE 5% 1 PATCH TD SCH (10:46)
[2020-07-01 11:06] LABS: Basophils % (auto) 1.3 %; Eosinophils # (auto) 0.18 K/uL (0-0.5); Eosinophils % (auto) 2.3 %; Hematocrit (blood only) 40.5 % (37-47); Hemoglobin 13.1 g/dL (12.0-16.0); Immature Granulocytes # (auto) 0.02 K/uL (0.00-0.02); Immature Granulocytes % (auto) 0.3 %; Lymphocytes # (auto) 2.44 K/uL (1.2-3.4); Lymphocytes % (auto) 30.5 %; Mean Corpuscular Hemoglobin 30.6 pg (25-34); Mean Corpuscular Hgb Conc 32.3 g/dL (32-36); Mean Corpuscular Volume 94.6 fL (80-100); Mean Platelet Volume 9.9 fL (7.4-10.4); Monocytes # (auto) 2.04 K/uL (0.11-0.59); Monocytes % (auto) 25.5 %; Neutrophils # (auto) 3.22 K/uL (1.4-6.5); Neutrophils % (auto) 40.1 %; Platelet Count 306 K/uL (130-400); RDW Coefficient of Variation 14.3 % (11.5-14.5); RDW Standard Deviation 49.6 fL (36.4-46.3); Red Blood Count 4.28 M/uL (4.2-5.4)
[2020-07-01 11:23] LABS: Alanine Aminotransferase 19 U/L (12-78); Albumin Level 3.9 gm/dl (3.4-5.0); Aspartate Aminotransferase 16 U/L (15-37); BUN Creatinine Ratio 24.9 (10-20); Blood Urea Nitrogen 12 mg/dl (7-18); Carbon Dioxide 24 mmol/L (21-32); Chloride 110 mmol/L (98-107); Creatinine Clr Calc Pharmacy 82.5 ml/min; Est GFR (African American) 110.4; Est GFR (Non-African American) 95.3; Glucose 87 mg/dl (70-99); Potassium 3.8 mmol/L (3.5-5.1); Sodium 141 mmol/L (136-145)
[2020-07-01 11:33] LABS: Alkaline Phosphatase 112 U/L (45-117); Bilirubin,Total 0.9 mg/dl (0.2-1); Total Protein 7.9 gm/dl (6.4-8.2); Troponin I < 0.015 ng/ml (0-0.045)
[2020-07-01] MEDS ORDERED: OPTIRAY 300 100mL IV ONE (11:53)
--- NOTE | 2020-07-01 12:18 | CT Scan Report ---
CT OF THE CHEST WITH IV CONTRAST CLINICAL HISTORY: L1 pathologic fracture COMPARISON STUDY: No previous studies for comparison. TECHNIQUE: Following IV administration of 89 mL of Optiray, helical axial images of the chest were o btained. Sagittal and coronal reconstructions were viewed as well as maximal intensity projections o n an independent 3-D workstation. Automated exposure control was utilized for the study. A dose low ering technique was utilized adhering to the principles of ALARA. FINDINGS: No enlarged axillary, mediastinal or hilar lymph nodes are present. The heart is mildly en larged. A moderate sized hiatal hernia is present. There is no pneumothorax or pleural effusion. Line ar and groundglass opacities within the lungs favor atelectasis. The central airways are patent. Ther e are no foci of consolidation to suggest pneumonia. CT of the abdomen and pelvis and thoracic spine will be reported separately. A T5 compression fracture is noted. There are old compression fractures of T8 and L1 status post vertebroplasty at these levels. IMPRESSION: 1. No acute process within the chest. 2. Multiple thoracic and lumbar spine compression fractures better depicted on the spine CTs. Please see this report for further description. 3. Moderate sized hiatal hernia. 4. Mild cardiomegaly. ACT 112: Negative or not required by law. Electronically signed by: Jamar Linares M.D. 07/01/2020 12:17 PM
--- NOTE | 2020-07-01 12:23 | CT Scan Report ---
CT SCAN OF THE ABDOMEN AND PELVIS WITH IV CONTRAST; CT SCAN OF THE LUMBAR SPINE WITHOUT IV CONTRAST CLINICAL HISTORY: Low back pain. Reported history of pathologic fracture. COMPARISON STUDY: No priors. TECHNIQUE: Following the IV administration of 89 cc of Optiray 300, CT scan of the abdomen and pelvi s is performed from the lung bases to the proximal femora. Additionally, CT scan of the lumbar spine is performed from the lower thoracic spine to sacrum. Images for both examinations are reviewed in th e axial, sagittal, and coronal planes. IV contrast was administered without complication. A dose lowe ring technique was utilized adhering to the principles of ALARA. FINDINGS: Lung bases: The heart is mildly enlarged and without pericardial effusion. The lung bases are clear n oting bibasilar scarring/atelectasis. There is a moderate hiatal hernia. Liver: The contrast-enhanced liver is normal in size, contour, and attenuation. There is no intrahepa tic biliary ductal dilatation. The hepatic veins and portal veins are patent. There our 3 indetermina nt hepatic hypodensities which measure up to 1.0 cm. Gallbladder: Unremarkable. Spleen: Normal in size and attenuation. Pancreas: Unremarkable. Adrenal glands: Unremarkable. Kidneys: The contrast enhanced kidneys are normal in size and without hydronephrosis. The kidneys enh ance symmetrically. A retroaortic left renal vein is incidentally noted. A 3 mm nonobstructing calcul us is noted in the interpolar right kidney. A 1.6 cm cyst is noted in the left upper pole. Abdominal vasculature: The abdominal aorta is normal in course and caliber noting moderate atheroscle rotic calcification. Bowel: There is mild colonic diverticulosis without CT evidence of acute diverticulitis. No bowel obs truction is seen. Mild to moderate fecal retention is noted throughout the colon. The appendix is no t visualized. Peritoneum: There is no intraperitoneal free air or abdominal ascites. There is a fat-containing umbi lical hernia. Lymphadenopathy: None. Pelvic viscera: The bladder is distended but otherwise normal in appearance. The uterus is surgically absent. No adnexal lesion is seen. Skeletal structures: The skeletal structures are osteopenic. No lytic or blastic lesions are seen. Ve rtebroplasty change is partially visualized and body of T8. There is a minimal chronic inferior endpl ate compression deformity of T12. See below for discussion of the lumbar spine. The bony pelvis and p roximal femora appear intact. There is a healed right pubic ring fracture. LUMBAR SPINE: There is a chronic compression deformity of L1 with mild loss of height and evidence of previous vertebroplasty. Fragments are retropulsed by up to 6 mm. There is an acute to subacute appe aring compression fracture of L3 with [id number] loss of height and fragments retropulsed by up to 5 mm. Paravertebral edema is noted at this level. There is a minimal superior end plate compressi on deformity of L2. A large hemangioma is noted in the body of L4 and a mild compression deformity of L1. These are age indeterminant. A small hemangioma is seen in the body of T12. The transverse and s pinous processes are intact. There is no evidence of spondylolysis. The disc spaces appear maintained . There is no CT evidence of large disc herniation. Mild facet arthropathy is noted in the lower lumb ar region. There is fatty atrophy of the paraspinous musculature. IMPRESSION: 1. There are no acute infectious or inflammatory findings in the abdomen or pelvis. 2. There is an acute to subacute appearing compression fracture of L3 with mild to moderate loss of h eight and retropulsed fragments up to 5 mm. 3. Additional chronic appearing thoracolumbar compression deformities as above with evidence of previ ous vertebroplasty. 4. No destructive bony lesion is identified to suggest pathologic fracture. Correlation with the rafal ent's medical/oncological history will be required. 5. Right-sided nephrolithiasis. 6. Bladder distention. 7. Colonic diverticulosis without CT evidence of acute diverticulitis. 8. Additional findings as above. ACT 112: Negative or not required by law. Electronically signed by: Alejandro Hoover M.D. 07/01/2020 12:22 PM
--- NOTE | 2020-07-01 12:24 | CT Scan Report ---
THORACIC SPINE CT CLINICAL HISTORY: T8, L1 fracture COMPARISON STUDY: Thoracic spine fluoroscopic images May 16, 2020. TECHNIQUE: Images of the thoracic spine were obtained. Sagittal and coronal reconstructions were view ed. Automated exposure control was utilized for the study. A dose lowering technique was utilized ad obed to the principles of ALARA. FINDINGS: Note is made of old T8 and L1 compression fracture status post vertebroplasty at these leve ls. Note is made of a 4 mm of retropulsion at the level of the superior endplate of L1. There is slig ht concavity of the inferior endplate of T12. Note is made of a severe T5 compression fracture is 75% loss of vertebral body height. There is 3 mm of retropulsion at the level of the superior endplate o f T5. There is no significant central canal stenosis. No additional thoracic spine fractures are pres ent. Facet joints are intact. Mild multilevel degenerative changes are present. Chest CT will be repo rted separately. IMPRESSION: 1. Age indeterminate severe compression fracture of T5 with 75% loss of vertebral body height and min imal retropulsion of 3 mm. 2. Old T8 and L1 compression fracture status post vertebroplasty at these levels. 3. Mild concavity of the inferior endplate of T12. ACT 112: Negative or not required by law. Electronically signed by: Jamar Linares M.D. 07/01/2020 12:22 PM
[2020-07-01 12:38] LABS: Appearance Urine Clear (Clear); Bacteria Urine Automated Negative (Negative); Bilirubin Urine Negative (Negative); Blood Urine Trace (Negative); Color Urine Yellow; Epithelial Cell Urine Auto 0-5 /lpf (0-5); Glucose Urine UA Negative (Negative); Ketones Urine Negative (Negative); Leukocyte Esterase Urine Negative (Negative); Nitrite Urine Negative (Negative); Protein Urine Negative (Negative); RBC Urine Automated 0-4 /hpf (0-4); Specific Gravity Urine 1.013 (1.000-1.030); Urobilinogen Urine Negative (Negative)
--- NOTE | 2020-07-01 13:31 | History & Physical Report ---
Date of Service July 01, 2020 Assessment & Plan (1) Intractable back pain: (2) Compression fracture: This is a 74yo F with a PMH of osteoporosis, hypothyroidism, and other medical problems listed below who presents with worsening back pain over the past 3 days and was found to have compression fractures at L3 and L5. History of kyphoplasty to T1 in [address] [facility] after developing acute back pain with compression fracture of L1 and compression fracture of T8 and underwent T8 kyphoplasty in April [address] Bethea at [facility] Presenting with worsening pain over the weekend, sent from ortho spine for further evaluation Thoracic spine CT with age indeterminate severe compression fracture of T5 with 75% loss of vertebral body height and minimal retropulsion of [address] with an acute to subacute appearing compression fracture of L3 with mild to moderate loss of height and retropulsed fragments up to [address] Bethea of ortho spine to evaluate patient Pain control (3) Osteoporosis: Follows with rheum. On Prolia for 15 years. Also supplementing with Ca and vitamin D Repeat vitamin D levels (4) IgM lambda monoclonal gammopathy: Per chart review, history of IgM lambda monoclonal gammopathy per 05/06/20 lab work Patient without knowledge and no evidence of follow up to lab work, per chart review Today's workup without lytic lesions on imaging, renal function wnl, normal calcium. SPEP, UPEP pending Would recommend hematology follow up (5) Hypothyroidism: Continue levothyroxine (6) Dyslipidemia: Continue atorvastatin DVT Ppx: SCDs Code status: FULL PCP: Betzy Dispo: Admitted to med/surg. Plan to return home once medically stable. Patient seen in collaboration with Dr. Lim. Please see addendum. History of Present Illness Chief Complaint: back pain Primary Care Provider: Caro Bo, This is a 74yo F with a PMH of osteoporosis, hypothyroidism, and other medical problems listed below who presents with worsening back pain over the past 3 days. Patient with history of kyphoplasty to T1 in [address] [facility] after developing acute back pain with compression fracture of L1. Back pain recurred in April of this year and patient was found to have compression fracture of T8 and underwent T8 kyphoplasty by Dr. Bethea at [facility]. Pain improved initially but worsened again over the weekend. Pain is in lower R back and upper buttocks and denies radiation across spine or down RLE. Exacerbated with movement. Slight impro vement with ice and alternating Aleve and extra strength tylenol. Was seen by ortho spine group earlier today with and was found to have an acute to subacute appearing compression fracture of L3 with mild to moderate loss of height and retropulsed fragments up to 5 mm and age indeterminate severe compression fracture of T5 with 75% loss of vertebral body height and minimal retropulsion of 3 mm. Does have known history of osteoporosis and has been on alendronate for past 15 years. Denies fever, chills, lightheadedness, headache, chest pain, SOB, nausea, vomiting, abdominal pain, dysuria, diarrhea or constipation. Per chart review, history of IgM lambda monoclonal gammopathy per 05/06/20 lab work. Allergies Allergy/AdvReac Type Severity Reaction Status Date / Time clarithromycin [From Biaxin] Allergy Severe Swelling Verified 07/01/20 11:13 of Lip/Tongue/Throat Home Medications Medication Instructions Recorded Confirmed Type atorvastatin [Lipitor] 40 mg PO HS 04/11/18 07/01/20 History calcium carbonate-vitamin D3 1 tab PO BID 04/11/18 07/01/20 History [Calcium 500 + D] levothyroxine 25 mcg PO QAM 04/11/18 07/01/20 History polyethylene glycol 3350 [Miralax] 17 g PO DAILY PRN 04/11/18 07/01/20 History [place] 1 spray NA QAM 05/09/20 07/01/20 History Prolia 60 mg SUBCUT UD 05/09/20 07/01/20 History cholecalciferol (vitamin D3) 25 mcg PO QAM 05/09/20 07/01/20 History [Vitamin D3] omeprazole 20 mg PO BID 05/09/20 07/01/20 History Past Med/Surg History Medical History (Updated 07/01/20 @ 15:05 by Trixie Millan PA-C) Dyslipidemia History of stomach ulcers 12/2019 (on preventative PPI) Hypothyroidism IgM lambda monoclonal gammopathy "small" per 05/06/20 labs, under surveillance Osteoporosis Osteoporosis Restless leg syndrome Surgical History H/O kyphoplasty History of colonoscopy History of esophagogastroduodenoscopy (EGD) History of partial hysterectomy History of tonsillectomy and adenoidectomy Family History Family/Other Breast cancer Other No family history of adverse response to anesthesia Social History Smoking Status: Never smoker Second Hand Exposure: Yes ( A CHILD FOR SHORT PERIOD); Hx Alcohol Use: No Hx Substance Use: No Preferred Language: Spanish Communication Ability: Effective Medical Tech Required: No Beliefs That Will Affect Care: None marital status: Current Living Situation: Spouse Feels Safe at Home: Yes Assistive Devices: Glasses Review of Systems Review of Systems: At least ten systems reviewed and negative except as noted in the HPI. Physical Exam Physical Exam: General Appearance: WD/WN, vitals as above, NAD, sitting up in bed, pleasant, in acute pain Head: normocephalic, atraumatic Eyes: normal inspection, PERRL, conjunctivae normal, anicteric sclerae ENT: external ear and nose normal, oropharynx normal Neck: normal visual inspection, trachea midline, no thyromegaly Respiratory: normal respiratory effort, lungs clear to auscultation, no wheeze, rales, rhonchi. No accessory muscle use Cardiovascular: regular rate, rhythm, no murmur appreciated, normal peripheral pulses, no BLE edema. Vessels: no JVD Chest: normal inspection of chest Abdomen/GI: normal bowel sounds, soft, nontender, no hepatosplenomegaly Extremities/Musculoskeletal: TTP at R lumbar spine extending down to PSIS. No cyanosis or clubbing, extremities motor strength 5/5 Neurologic: PERRL, EOMI, accommodation nl, no face palsy, no dysarthria, CN's II-XI intact bilaterally and moves all extremities Psychiatric: A+Ox3, euthymic affect Skin: no rashes, normal color, warm/dry Results & Data Results & Data ([facility]) Vital Signs (Past 12 Hours) Vital Signs Temp Pulse Resp BP Pulse Ox 07/01/20 12:44 64 17 146/74 H 95 07/01/20 10:31 99 07/01/20 09:56 36.5 C 81 18 152/73 H 99 Laboratory Results Short CBC 07/01/20 Range/Units 10:12 WBC 8.00 (4.8-10.8) K/uL Hgb 13.1 (12.0-16.0) g/dL Hct 40.5 (37-47) % Plt Count 306 (130-400) K/uL BMP 07/01/20 10:40 Sodium 141 Potassium 3.8 Chloride 110 H Carbon Dioxide 24 BUN 12 Creatinine 0.48 L Glucose 87 Calcium 9.0 Cardiac Enzymes 07/01/20 Range/Units 10:40 Troponin I < 0.015 (0-0.045) ng/ml Liver Function 07/01/20 Range/Units 10:40 Total Bilirubin 0.9 (0.2-1) mg/dl AST 16 (15-37) U/L ALT 19 (12-78) U/L Alkaline Phosphatase 112 (45-117) U/L Albumin 3.9 (3.4-5.0) gm/dl Urine 07/01/20 Range/Units 12:16 Urine Color Yellow Urine Appearance Clear (Clear) Urine pH 7.0 (4.5-7.5) Ur Specific [place] 1.013 (1.000-1.030) Urine Protein Negative (Negative) Urine Glucose (UA) Negative (Negative) Diagnostic Findings Abdomen/Pelvis CT 07/01/20 10:12 CT SCAN OF THE ABDOMEN AND PELVIS WITH IV CONTRAST; CT SCAN OF THE LUMBAR SPINE WITHOUT IV CONTRAST CLINICAL HISTORY: Low back pain. Reported history of pathologic fracture. COMPARISON STUDY: No priors. TECHNIQUE: Following the IV administration of 89 cc of Optiray 300, CT scan of the abdomen and pelvis is performed from the lung bases to the proximal femora. Additionally, CT scan of the lumbar spine is performed from the lower thoracic spine to sacrum. Images for both examinations are reviewed in the axial, sagittal, and coronal planes. IV contrast was administered without complication. A dose lowering technique was utilized adhering to the principles of ALARA. FINDINGS: Lung bases: The heart is mildly enlarged and without pericardial effusion. The lung bases are clear noting bibasilar scarring/atelectasis. There is a moderate hiatal hernia. Liver: The contrast-enhanced liver is normal in size, contour, and attenuation. There is no intrahepatic biliary ductal dilatation. The hepatic veins and portal veins are patent. There our 3 indeterminant hepatic hypodensities which measure up to 1.0 cm. Gallbladder: Unremarkable. Spleen: Normal in size and attenuation. Pancreas: Unremarkable. Adrenal glands: Unremarkable. Kidneys: The contrast enhanced kidneys are normal in size and without hydronephrosis. The kidneys enhance symmetrically. A retroaortic left renal vein is incidentally noted. A 3 mm nonobstructing calculus is noted in the interpolar right kidney. A 1.6 cm cyst is noted in the left upper pole. Abdominal vasculature: The abdominal aorta is normal in course and caliber noting moderate atherosclerotic calcification. Bowel: There is mild colonic diverticulosis without CT evidence of acute diverticulitis. No bowel obstruction is seen. Mild to moderate fecal retention is noted throughout the colon. The appendix is not visualized. Peritoneum: There is no intraperitoneal free air or abdominal ascites. There is a fat-containing umbilical hernia. Lymphadenopathy: None. Pelvic viscera: The bladder is distended but otherwise normal in appearance. The uterus is surgically absent. No adnexal lesion is seen. Skeletal structures: The skeletal structures are osteopenic. No lytic or blastic lesions are seen. Vertebroplasty change is partially visualized and body of T8. There is a minimal chronic inferior endplate compression deformity of T12. See below for discussion of the lumbar spine. The bony pelvis and proximal femora appear intact. There is a healed right pubic ring fracture. LUMBAR SPINE: There is a chronic compression deformity of L1 with mild loss of height and evidence of previous vertebroplasty. Fragments are retropulsed by up to 6 mm. There is an acute to subacute appearing compression fracture of L3 with [id number] loss of height and fragments retropulsed by up to 5 mm. Paravertebral edema is noted at this level. There is a minimal superior end plate compression deformity of L2. A large hemangioma is noted in the body of L4 and a mild compression deformity of L1. These are age indeterminant. A small hemangioma is seen in the body of T12. The transverse and spinous processes are intact. There is no evidence of spondylolysis. The disc spaces appear maintained. There is no CT evidence of large disc herniation. Mild facet arthropathy is noted in the lower lumbar region. There is fatty atrophy of the paraspinous musculature. IMPRESSION: 1. There are no acute infectious or inflammatory findings in the abdomen or pelvis. 2. There is an acute to subacute appearing compression fracture of L3 with mild to moderate loss of height and retropulsed fragments up to 5 mm. 3. Additional chronic appearing thoracolumbar compression deformities as above with evidence of previous vertebroplasty. 4. No destructive bony lesion is identified to suggest pathologic fracture. Correlation with the patient's medical/oncological history will be required. 5. Right-sided nephrolithiasis. 6. Bladder distention. 7. Colonic diverticulosis without CT evidence of acute diverticulitis. 8. Additional findings as above. ACT 112: Negative or not required by law. Electronically signed by: Alejandro Hoover M.D. 07/01/2020 12:[address] 07/01/20 10:12 CT OF THE CHEST WITH IV CONTRAST CLINICAL HISTORY: L1 pathologic fracture COMPARISON STUDY: No previous studies for comparison. TECHNIQUE: Following IV administration of 89 mL of Optiray, helical axial images of the chest were obtained. Sagittal and coronal reconstructions were viewed as well as maximal intensity projections on an independent 3-D workstation. Automated exposure control was utilized for the study. A dose lowering technique was utilized adhering to the principles of ALARA. FINDINGS: No enlarged axillary, mediastinal or hilar lymph nodes are present. The heart is mildly enlarged. A moderate sized hiatal hernia is present. There is no pneumothorax or pleural effusion. Linear and groundglass opacities within the lungs favor atelectasis. The central airways are patent. There are no foci of consolidation to suggest pneumonia. CT of the abdomen and pelvis and thoracic spine will be reported separately. A T5 compression fracture is noted. There are old compression fractures of T8 and L1 status post vertebroplasty at these levels. IMPRESSION: 1. No acute process within the chest. 2. Multiple thoracic and lumbar spine compression fractures better depicted on the spine CTs. Please see this report for further description. 3. Moderate sized hiatal hernia. 4. Mild cardiomegaly. ACT 112: Negative or not required by law. Electronically signed by: Jamar Linares M.D. 07/01/2020 12:[address] 07/01/20 10:12 CT SCAN OF THE ABDOMEN AND PELVIS WITH IV CONTRAST; CT SCAN OF THE LUMBAR SPINE WITHOUT IV CONTRAST CLINICAL HISTORY: Low back pain. Reported history of pathologic fracture. COMPARISON STUDY: No priors. TECHNIQUE: Following the IV administration of 89 cc of Optiray 300, CT scan of the abdomen and pelvis is performed from the lung bases to the proximal femora. Additionally, CT scan of the lumbar spine is performed from the lower thoracic spine to sacrum. Images for both examinations are reviewed in the axial, sagittal, and coronal planes. IV contrast was administered without complication. A dose lowering technique was utilized adhering to the principles of ALARA. FINDINGS: Lung bases: The heart is mildly enlarged and without pericardial effusion. The lung bases are clear noting bibasilar scarring/atelectasis. There is a moderate hiatal hernia. Liver: The contrast-enhanced liver is normal in size, contour, and attenuation. There is no intrahepatic biliary ductal dilatation. The hepatic veins and portal veins are patent. There our 3 indeterminant hepatic hypodensities which measure up to 1.0 cm. Gallbladder: Unremarkable. Spleen: Normal in size and attenuation. Pancreas: Unremarkable. Adrenal glands: Unremarkable. Kidneys: The contrast enhanced kidneys are normal in size and without hydronephrosis. The kidneys enhance symmetrically. A retroaortic left renal vein is incidentally noted. A 3 mm nonobstructing calculus is noted in the interpolar right kidney. A 1.6 cm cyst is noted in the left upper pole. Abdominal vasculature: The abdominal aorta is normal in course and caliber noting moderate atherosclerotic calcification. Bowel: There is mild colonic diverticulosis without CT evidence of acute diverticulitis. No bowel obstruction is seen. Mild to moderate fecal retention is noted throughout the colon. The appendix is not visualized. Peritoneum: There is no intraperitoneal free air or abdominal ascites. There is a fat-containing umbilical hernia. Lymphadenopathy: None. Pelvic viscera: The bladder is distended but otherwise normal in appearance. The uterus is surgically absent. No adnexal lesion is seen. Skeletal structures: The skeletal structures are osteopenic. No lytic or blastic lesions are seen. Vertebroplasty change is partially visualized and body of T8. There is a minimal chronic inferior endplate compression deformity of T12. See below for discussion of the lumbar spine. The bony pelvis and proximal femora appear intact. There is a healed right pubic ring fracture. LUMBAR SPINE: There is a chronic compression deformity of L1 with mild loss of height and evidence of previous vertebroplasty. Fragments are retropulsed by up to 6 mm. There is an acute to subacute appearing compression fracture of L3 with [id number] loss of height and fragments retropulsed by up to 5 mm. Paravertebral edema is noted at this level. There is a minimal superior end plate compression deformity of L2. A large hemangioma is noted in the body of L4 and a mild compression deformity of L1. These are age indeterminant. A small hemangioma is seen in the body of T12. The transverse and spinous processes are intact. There is no evidence of spondylolysis. The disc spaces appear maintained. There is no CT evidence of large disc herniation. Mild facet arthropathy is noted in the lower lumbar region. There is fatty atrophy of the paraspinous musculature. IMPRESSION: 1. There are no acute infectious or inflammatory findings in the abdomen or pelvis. 2. There is an acute to subacute appearing compression fracture of L3 with mild to moderate loss of height and retropulsed fragments up to 5 mm. 3. Additional chronic appearing thoracolumbar compression deformities as above with evidence of previous vertebroplasty. 4. No destructive bony lesion is identified to suggest pathologic fracture. Correlation with the patient's medical/oncological history will be required. 5. Right-sided nephrolithiasis. 6. Bladder distention. 7. Colonic diverticulosis without CT evidence of acute diverticulitis. 8. Additional findings as above. ACT 112: Negative or not required by law. Electronically signed by: Alejandro Hoover M.D. 07/01/2020 12:[address] 07/01/20 10:[address] CLINICAL HISTORY: T8, L1 fracture COMPARISON STUDY: Thoracic spine fluoroscopic images May 16, 2020. TECHNIQUE: Images of the thoracic spine were obtained. Sagittal and coronal reconstructions were viewed. Automated exposure control was utilized for the s tudy. A dose lowering technique was utilized adhering to the principles of ALARA. FINDINGS: Note is made of old T8 and L1 compression fracture status post vertebroplasty at these levels. Note is made of a 4 mm of retropulsion at the level of the superior endplate of L1. There is slight concavity of the inferior endplate of T12. Note is made of a severe T5 compression fracture is 75% loss of vertebral body height. There is 3 mm of retropulsion at the level of the superior endplate of T5. There is no significant central canal stenosis. No additional thoracic spine fractures are present. Facet joints are intact. Mild multilevel degenerative changes are present. Chest CT will be reported separately. IMPRESSION: 1. Age indeterminate severe compression fracture of T5 with 75% loss of ve rtebral body height and minimal retropulsion of 3 mm. 2. Old T8 and L1 compression fracture status post vertebroplasty at these levels. 3. Mild concavity of the inferior endplate of T12. ACT 112: Negative or not required by law. Electronically signed by: Jamar Linares M.D. 07/01/2020 12:22 PM Supervising Physician Co-Signing Physician Notes I saw this patient with the physician digital sales assistant, I participated in the history, physical, review of systems, and physical exam. I reviewed the medications with the patient and the physician digital sales assistant and helped reconcile the medications. I helped take a detailed family and social history as well. I formulated the assessment and plan personally with the physician digital sales assistant and went over it with the patient. ROS-No Headache, No Visual Changes, No Nausea, No Vomiting, No Fever, No Chills, No Neck Pain or Stiffness, No Chest Pain, No Palpitations, No SOB, No WOLFE, No Cough, No Sputum, No Wheezing, + Abdominal Pain, No Diarrhea, No Hematemesis, No Hemoptysis, No Unexpected Weight Loss, No Flank pain, No Melena, No Hemato chezia, No Frequency, No Urgency, No Burning, No Hematuria, No Rashes, No Diaphoresis. Appetite is Normal, +Back Pain Physical Exam Gen-AAO x 3, NAD, Afebrile, In Pain Head-NCAT, EOMI, PERRLA, Anicteric Sclera, No Posterior Pharyngeal Erythema Neck-Supple, No JVD, No Thyromegaly, No Masses, No LAD, No Bruits Lungs-Clear to Auscultation Bilaterally, No Rales, No Rhonchi, No Wheezing, No Crepitus Chest-No S4, +S1, +S2, No S3, No Murmurs, No Rubs, No Gallops, No Ectopy Abdomen-Soft, Bowel Sounds Present, Non Tender, Non Distended, No Hepatomegaly, No Splenomegaly, No Palpable Masses, No Rebound, No Rigidity, No Guarding Musculoskeletal-Decreased Range of Motion Sec to back pain, No CVAT Extremities-No Cyanosis, No Clubbing, No Edema Nuero-Cranial Nerves II-XII grossly intact, Motor WNL, DTRs WNL, Strength WNL, Non Focal Psych-Normal Mood
[2020-07-01 13:41] LABS: Influenza A virus by PCR Negative (Neg); Influenza B virus by PCR Negative (Neg); RSV by PCR Negative (Neg); SARS CoV2 RNA(COVID-19) InHosp NEGATIVE (Negative)
[2020-07-01] MEDS ORDERED: ONDANSETRON INJ 2 MG/ML 2 ML VIAL IV PRN (16:32)
[2020-07-01] MEDS ORDERED: ACETAMINOPHEN 325 MG TAB PO PRN (16:32)
[2020-07-01] MEDS: ATORVASTATIN 40 MG TAB PO SCH (21:39)
[2020-07-01] MEDS: PANTOprazole 40 MG TAB PO SCH (21:39)
[2020-07-01] MEDS: CALCIUM 600MG + VIT D 400 IU TAB PO SCH (21:39)
[2020-07-01] MEDS: POLYETHYLENE (MIRALAX) 17 GM PACK PO PRN (21:51)
[2020-07-01] MEDS: HYDROmorphone INJ 0.5 MG/0.5 ML SYR IV PRN (21:52)
[2020-07-02 05:53] LABS: Hematocrit (blood only) 38.1 % (37-47); Hemoglobin 12.1 g/dL (12.0-16.0); Mean Corpuscular Hemoglobin 29.9 pg (25-34); Mean Corpuscular Hgb Conc 31.8 g/dL (32-36); Mean Corpuscular Volume 94.1 fL (80-100); Mean Platelet Volume 9.9 fL (7.4-10.4); Platelet Count 275 K/uL (130-400); RDW Coefficient of Variation 14.2 % (11.5-14.5); RDW Standard Deviation 48.9 fL (36.4-46.3); Red Blood Count 4.05 M/uL (4.2-5.4); White Blood Count 7.97 K/uL (4.8-10.8)
[2020-07-02] MEDS: LEVOTHYROXINE SODIUM 25 MCG TABLET PO SCH (06:07)
--- NOTE | 2020-07-02 06:37 | Electrocardiogram Report ---
Test Reason : Blood Pressure : / mmHG Vent. Rate : 073 BPM Atrial Rate : 073 BPM P-R Int : 170 ms QRS Dur : 082 ms QT Int : 404 ms P-R-T Axes : 036 011 027 degrees QTc Int : 445 ms Normal sinus rhythm Normal ECG When compared with ECG of 12-MAY-2020 11:12, No significant change was found Confirmed by Vijay Miles ([id number]) on 07/02/2020 6:36:44 AM Referred By: REFERRED SELF Confirmed By:Vijay Miles
[2020-07-02 06:43] LABS: BUN Creatinine Ratio 25.3 (10-20); Calcium 9.2 mg/dl (8.5-10.1); Creatinine Clr Calc Pharmacy 67.1 ml/min; Est GFR (African American) 103.2; Potassium 4.5 mmol/L (3.5-5.1)
[2020-07-02] MEDS: CALCIUM 600MG + VIT D 400 IU TAB PO SCH ×2 (08:32→20:20)
[2020-07-02] MEDS: CHOLECALCIFEROL 1,000 UNITS 25 MCG TAB PO SCH (08:32)
[2020-07-02] MEDS: PANTOprazole 40 MG TAB PO SCH ×2 (08:32→20:20)
[2020-07-02] MEDS: HYDROmorphone INJ 0.5 MG/0.5 ML SYR IV PRN ×3 (08:42→23:16)
[2020-07-02] MEDS: LIDOCAINE 5% 1 PATCH TD SCH (11:06)
--- NOTE | 2020-07-02 14:49 | Hospitalist Progress Note ---
Date of Service July 02, 2020 Assessment & Plan (1) Intractable back pain: (2) Compression fracture: This is a 74yo F with a PMH of osteoporosis, hypothyroidism, and other medical problems listed below who presents with worsening back pain over the past 3 days and was found to have compression fractures at L3 and L5. History of kyphoplasty to T1 in 2019 at [facility] after developing acute back pain with compression fracture of L1 and compression fracture of T8 and underwent T8 kyphoplasty in April [address] Bethea at [facility] Presenting with worsening pain over the weekend, sent from ortho spine for further evaluation Thoracic spine CT with age indeterminate severe compression fracture of T5 with 75% loss of vertebral body height and minimal retropulsion of [address] with an acute to subacute appearing compression fracture of L3 with mild to moderate loss of height and retropulsed fragments up to [address] Bethea of ortho spine to evaluate patient - suspect she will heal appropriately without surgical intervention as her pain is controlled with oral pain medications at this time. Had a lengthy discussion with this patient regarding surgery. We both agree we will try to avoid another procedure as long as her pain is controlled. She understands if pain becomes intractable again we may have to consider kyphoplasty. This point I recommend she use a walker to ambulate lift no more than 5 pounds. Pain control (3) Osteoporosis: Follows with rheum. On Prolia for 15 years. Also supplementing with Ca and vitamin D Repeat vitamin D levels (4) IgM lambda monoclonal gammopathy: Per chart review, history of IgM lambda monoclonal gammopathy per 05/06/20 lab work Patient without knowledge and no evidence of follow up to lab work, per chart review Today's workup without lytic lesions on imaging, renal function wnl, normal calcium. SPEP, UPEP pending Would recommend hematology follow up (5) Hypothyroidism: Continue levothyroxine (6) Dyslipidemia: Continue atorvastatin DVT Ppx: SCDs Code status: FULL PCP: Betzy Dispo: med/surg. Plan to return home once medically stable. Admission and Anticipated Discharge Date Admission Date: July 01, 2020 Subjective Patient seen in follow-up of back pain, vertebral fracture Currently she is lying in bed, in no acute distress, says that she feels better now Awaiting consultation from Dr. Bethea Denies any fevers, chills, chest pain, shortness of breath, abdominal pain, nausea or vomiting Review of Systems Review of Systems: All systems reviewed & are unremarkable except as noted in HPI & below Constitutional: no fever and no chills Respiratory: no cough and no dyspnea Cardiovascular: no chest pain and no palpitations Gastrointestinal: no abdominal pain, no nausea and no vomiting Physical Exam Physical Exam: General Appearance: WD/WN, NAD, laying in bed in no acute distress Head: normocephalic, atraumatic Eyes: normal inspection, PERRL, EOMI, conjunctivae normal, anicteric sclerae ENT: external ear and nose normal, oropharynx normal Neck: normal visual inspection, trachea midline, no thyromegaly Respiratory: normal respiratory effort, lungs clear to auscultation, no wheeze, rales, rhonchi. No accessory muscle use Cardiovascular: regular rate, rhythm, no murmur appreciated, normal peripheral pulses, no BLE edema. Vessels: no JVD Chest: normal inspection of chest Abdomen/GI: normal bowel sounds, soft, nontender Extremities/Musculoskeletal: Moves extremities spontaneously Neurologic: PERRL, EOMI,no face palsy, no dysarthria, CN's II-XI intact bilaterally and moves all extremities Psychiatric: A+Ox3, euthymic affect Skin: no rashes, normal color, warm/dry Results & Data Results & Data ([facility]) Vital Signs (Past 12 Hours) Vital Signs Temp Pulse Resp BP Pulse Ox 07/02/20 07:45 36.6 C 78 14 129/80 91 Laboratory Results 07/02/20 07/02/20 07/02/20 Range/Units 05:12 05:12 05:12 WBC 7.97 (4.8-10.8) K/uL RBC 4.05 L (4.2-5.4) M/uL Hgb 12.1 (12.0-16.0) g/dL Hct 38.1 (37-47) % MCV 94.1 (80-100) fL MCH 29.9 (25-34) pg MCHC 31.8 L (32-36) g/dL RDW Std Deviation 48.9 H (36.4-46.3) fL RDW Coeff of Daniel 14.2 (11.5-14.5) % Plt Count 275 (130-400) K/uL MPV 9.9 (7.4-10.4) fL Sodium 139 (136-145) mmol/L Potassium 4.5 D (3.5-5.1) mmol/L Chloride 107 (98-107) mmol/L Carbon Dioxide 29 (21-32) mmol/L Anion Gap 3.0 (3-11) BUN 15 (7-18) mg/dl Creatinine 0.59 L (0.6-1.2) mg/dl Est Cr Clr Drug Dosing 67.1 ml/min Est GFR ( Amer) 103.2 Est GFR (Non-Af Amer) 89.0 BUN/Creatinine Ratio 25.3 H (10-20) Glucose 83 (70-99) mg/dl Calcium 9.2 (8.5-10.1) mg/dl 25-OH Vitamin D Total 43.9 (30-100) ng/ml Medications Administered Current Inpatient Medications Acetaminophen (Acetaminophen 325 Mg Tab) 650 mg PO Q4H PRN PRN Reason: pain/fever Stop: 07/31/20 16:31 Atorvastatin Calcium (Atorvastatin 40 Mg Tab) 40 mg PO HS [facility] Stop: 07/31/20 20:59 Last Admin: 07/01/20 21:39 Dose: 40 mg Documented by: Hydromorphone HCl (Hydromorphone Inj 0.5 Mg/0.5 Ml Syr) 0.5 mg IV Q4H PRN PRN Reason: Pain Stop: 07/15/20 16:31 Last Admin: 07/02/20 08:42 Dose: 0.5 mg Documented by: Levothyroxine Sodium (Levothyroxine Sodium 25 Mcg Tablet) 25 mcg PO DAILYBB [facility] Stop: 08/01/20 06:29 Last Admin: 07/02/20 06:07 Dose: 25 mcg Documented by: Lidocaine (Lidocaine 5% 1 Patch) 1 patch TD QAM [facility] Stop: 07/31/20 10:14 Last Admin: 07/02/20 11:06 Dose: 1 patch Documented by: Miscellaneous (Remove Lidoderm Patch) 1 ea N/A DAILY@2100 [facility] Stop: 07/31/20 20:59 Last Admin: 07/01/20 21:39 Dose: 1 ea Documented by: Multivitamins/Minerals (Calcium 600mg + Vit D 400 Iu Tab) 1 tab PO BID [facility] Stop: 07/31/20 20:59 Last Admin: 07/02/20 08:32 Dose: 1 tab Documented by: Ondansetron HCl (Ondansetron Inj 2 Mg/Ml 2 Ml Vial) 4 mg IV Q6H PRN PRN Reason: Nausea Stop: 07/31/20 16:31 Last Admin: 07/01/20 20:00 Dose: 4 mg Documented by: Pantoprazole Sodium (Pantoprazole 40 Mg Tab) 40 mg PO BID [facility] Stop: 07/31/20 20:59 Last Admin: 07/02/20 08:32 Dose: 40 mg Documented by: Polyethylene Glycol (Polyethylene (Miralax) 17 Gm Pack) 17 gm PO DAILY PRN PRN Reason: Constipation Stop: 07/31/20 16:31 Last Admin: 07/01/20 21:51 Dose: 17 gm Documented by: Vitamin D (Cholecalciferol 1,000 Units 25 Mcg Tab) 1,000 units PO QAM [facility] Stop: 08/01/20 08:59 Last Admin: 07/02/20 08:32 Dose: 1,000 units Documented by: (1) Osteoporosis Osteoporosis type: unspecified Presence of current pathological fracture: unspecified Qualified Code(s): M81.0 - Age-related osteoporosis without current pathological fracture
--- NOTE | 2020-07-02 15:15 | Orthopedic Consultation ---
Date of Consultation July 02, 2020 Assessment & Plan (1) Compression fracture: At this time the patient does have evidence of acute compression fracture on imaging. I suspect she will heal appropriately without surgical intervention as her pain is controlled with oral pain medications at this time. I had a lengthy discussion with this patient regarding surgery. We both agree we will try to avoid another procedure as long as her pain is controlled. She understands if he becomes intractable again we may have to consider kyphoplasty. This point I recommend she use a walker to ambulate lift no more than 5 pounds. Present on Admission?: Yes History of Present Illness Reason for Consultation: Severe back pain Attending Physician: Storm Celis MD History of Present Illness This is a 65-year-old female well-known to me the presents with marked decline in status over the past several days. She described pain in the lumbar spine. This began on Tuesday of last week. She denies any precipitating trauma fall or event. It is quite intolerable throughout the weekend. She presents the emergency room for pain control was subsequently admitted. This morning she feels her symptoms are markedly improved with some pain medication. She denies any radicular component to her pain. She has been up and ambulating the halls with assistance in the utilization of a walker. Again she is much more improved today compared to her condition last evening upon being admitted. Allergies Allergy/AdvReac Type Severity Reaction Status Date / Time clarithromycin [From Biaxin] Allergy Severe Swelling Verified 07/01/20 11:13 of Lip/Tongue/Throat Home Medications Medication Instructions Recorded Confirmed Type atorvastatin [Lipitor] 40 mg PO HS 04/11/18 07/01/20 History calcium carbonate-vitamin D3 1 tab PO BID 04/11/18 07/01/20 History [Calcium 500 + D] levothyroxine 25 mcg PO QAM 04/11/18 07/01/20 History polyethylene glycol 3350 [Miralax] 17 g PO DAILY PRN 04/11/18 07/01/20 History [place] 1 spray NA QAM 05/09/20 07/01/20 History Prolia 60 mg SUBCUT UD 05/09/20 07/01/20 History cholecalciferol (vitamin D3) 25 mcg PO QAM 05/09/20 07/01/20 History [Vitamin D3] omeprazole 20 mg PO BID 05/09/20 07/01/20 History Patient History Medical History (Updated 07/01/20 @ 17:06 by Rajiv Garcia MD) Dyslipidemia History of stomach ulcers 12/2019 (on preventative PPI) Hypothyroidism IgM lambda monoclonal gammopathy "small" per 05/06/20 labs, under surveillance Osteoporosis Osteoporosis Restless leg syndrome Surgical History H/O kyphoplasty History of colonoscopy History of esophagogastroduodenoscopy (EGD) History of partial hysterectomy History of tonsillectomy and adenoidectomy Family History Family/Other Breast cancer Other No family history of adverse response to anesthesia Social History Smoking Status: Never smoker Second Hand Exposure: Yes ( A CHILD FOR SHORT PERIOD); Hx Alcohol Use: No Hx Substance Use: No Preferred Language: Montene[place]in Communication Ability: Effective Sack Sewer Machine Required: No Beliefs That Will Affect Care: None marital status: Current Living Situation: Spouse Feels Safe at Home: Yes Assistive Devices: Glasses Physical Exam Physical Exam: On exam I did have the patient stand take a few steps in the room. She is able to do so comfortably. She demonstrated no pain to palpation or percussion of the thoracolumbar spine. Had good strength testing lower extr emities. Results & Data ([facility]) Vital Signs (Past 12 Hours) Vital Signs Temp Pulse Resp BP Pulse Ox 07/02/20 07:45 36.6 C 78 14 129/80 91
[2020-07-02] MEDS: POLYETHYLENE (MIRALAX) 17 GM PACK PO PRN (15:53)
[2020-07-02] MEDS: ATORVASTATIN 40 MG TAB PO SCH (20:20)
[2020-07-03] MEDS: LEVOTHYROXINE SODIUM 25 MCG TABLET PO SCH (06:31)
[2020-07-03 07:12] LABS: Hematocrit (blood only) 40.1 % (37-47); Hemoglobin 12.8 g/dL (12.0-16.0); Mean Corpuscular Hemoglobin 30.3 pg (25-34); Mean Corpuscular Hgb Conc 31.9 g/dL (32-36); Platelet Count 315 K/uL (130-400); RDW Coefficient of Variation 14.2 % (11.5-14.5); RDW Standard Deviation 49.2 fL (36.4-46.3); Red Blood Count 4.22 M/uL (4.2-5.4); White Blood Count 7.65 K/uL (4.8-10.8)
[2020-07-03 07:39] LABS: BUN Creatinine Ratio 29.8 (10-20); Calcium 9.5 mg/dl (8.5-10.1); Creatinine Clr Calc Pharmacy 60.9 ml/min; Est GFR (Non-African American) 86.2 ml/min
[2020-07-03] MEDS: HYDROmorphone INJ 0.5 MG/0.5 ML SYR IV PRN (08:08)
[2020-07-03] MEDS: oxyCODONE HCL IR 5 MG TAB (IMMEDIATE RELEASE) PO PRN ×2 (08:12→17:21)
[2020-07-03] MEDS: CALCIUM 600MG + VIT D 400 IU TAB PO SCH ×2 (08:13→21:22)
[2020-07-03] MEDS: CHOLECALCIFEROL 1,000 UNITS 25 MCG TAB PO SCH (08:13)
[2020-07-03] MEDS: PANTOprazole 40 MG TAB PO SCH ×2 (08:13→21:22)
[2020-07-03] MEDS: LIDOCAINE 5% 1 PATCH TD SCH (09:01)
--- NOTE | 2020-07-03 11:04 | Hospitalist Progress Note ---
Date of Service July 03, 2020 Assessment & Plan (1) Intractable back pain: (2) Compression fracture: This is a 74yo F with a PMH of osteoporosis, hypothyroidism, and other medical problems listed below who presents with worsening back pain over the past 3 days and was found to have compression fractures at L3 and L5. History of kyphoplasty to T1 in 2019 at [facility] after developing acute back pain with compression fracture of L1 and compression fracture of T8 and underwent T8 kyphoplasty in April [address] Bethea at [facility] Presenting with worsening pain over the weekend, sent from ortho spine for further evaluation Thoracic spine CT with age indeterminate severe compression fracture of T5 with 75% loss of vertebral body height and minimal retropulsion of [address] with an acute to subacute appearing compression fracture of L3 with mild to moderate loss of height and retropulsed fragments up to [address] Bethea of ortho spine to evaluate patient - suspect she will heal appropriately without surgical intervention as her pain is controlled with oral pain medications at this time. Had a lengthy discussion with this patient regarding surgery. We both agree we will try to avoid another procedure as long as her pain is controlled. She understands if pain becomes intractable again we may have to consider kyphoplasty. This point I recommend she use a walker to ambulate lift no more than 5 pounds. Pain control (3) Osteoporosis: Follows with rheum. On Prolia for 15 years. Also supplementing with Ca and vitamin D Repeat vitamin D levels (4) IgM lambda monoclonal gammopathy: Per chart review, history of IgM lambda monoclonal gammopathy per 05/06/20 lab work Patient without knowledge and no evidence of follow up to lab work, per chart review Current workup without lytic lesions on imaging, renal function wnl, normal calcium. SPEP, UPEP pending Would recommend hematology follow up (5) Hypothyroidism: Continue levothyroxine (6) Dyslipidemia: Continue atorvastatin DVT Ppx: SCDs Code status: FULL PCP: Dr. Bo Dispo: med/surg. Plan to return home. Admission and Anticipated Discharge Date Admission Date: July 01, 2020 Subjective Patient seen in follow-up of back pain, vertebral fracture Currently she is sitting up in the chair, eating breakfast, in no acute distress, says that she feels better now Denies any fevers, chills, chest pain, shortness of breath, abdominal pain, nausea or vomiting Patient discussed w/ Dr. Bethea yesterday, no recommended surgery at this time, pain well controlled with pain medications at this time. Review of Systems Review of Systems: All systems reviewed & are unremarkable except as noted in HPI & below Constitutional: no fever and no chills Respiratory: no cough and no dyspnea Cardiovascular: no chest pain and no palpitations Gastrointestinal: no abdominal pain, no nausea and no vomiting Physical Exam Physical Exam: General Appearance: WD/WN, NAD, in no acute distress Head: normocephalic, atraumatic Eyes: normal inspection, PERRL, EOMI, conjunctivae normal, anicteric sclerae ENT: external ear and nose normal, oropharynx normal Neck: normal visual inspection, trachea midline, no thyromegaly Respiratory: normal respiratory effort, lungs clear to auscultation, no wheeze, rales, rhonchi. No accessory muscle use Cardiovascular: regular rate, rhythm, no murmur appreciated, normal peripheral pulses, no BLE edema. Vessels: no JVD Chest: normal inspection of chest Abdomen/GI: normal bowel sounds, soft, nontender Extremities/Musculoskeletal: Moves extremities spontaneously Neurologic: PERRL, EOMI,no face palsy, no dysarthria, CN's II-XI intact bilaterally and moves all extremities Psychiatric: A+Ox3, euthymic affect Skin: no rashes, normal color, warm/dry Results & Data Results & Data ([facility]) Vital Signs (Past 12 Hours) Vital Signs Temp Pulse Resp BP BP Pulse Ox 07/03/20 07:23 36.8 C 71 16 129/73 93 07/02/20 23:44 36.7 C 69 17 126/74 93 Laboratory Results 07/03/20 07/03/20 Range/Units 06:33 06:33 WBC 7.65 (4.8-10.8) K/uL RBC 4.22 (4.2-5.4) M/uL Hgb 12.8 (12.0-16.0) g/dL Hct 40.1 (37-47) % MCV 95.0 (80-100) fL MCH 30.3 (25-34) pg MCHC 31.9 L (32-36) g/dL RDW Std Deviation 49.2 H (36.4-46.3) fL RDW Coeff of Daniel 14.2 (11.5-14.5) % Plt Count 315 (130-400) K/uL MPV 10.0 (7.4-10.4) fL Sodium 137 (136-145) mmol/L Potassium 4.0 (3.5-5.1) mmol/L Chloride 104 (98-107) mmol/L Carbon Dioxide 29 (21-32) mmol/L Anion Gap 4.0 (3-11) BUN 19 H (7-18) mg/dl Creatinine 0.65 (0.6-1.2) mg/dl Est Cr Clr Drug Dosing 60.9 ml/min Est GFR ( Amer) 100.0 ml/min Est GFR (Non-Af Amer) 86.2 ml/min BUN/Creatinine Ratio 29.8 H (10-20) Glucose 84 (70-99) mg/dl Calcium 9.5 (8.5-10.1) mg/dl Medications Administered Current Inpatient Medications Acetaminophen (Acetaminophen 325 Mg Tab) 650 mg PO Q4H PRN PRN Reason: pain/fever Stop: 07/31/20 16:31 Atorvastatin Calcium (Atorvastatin 40 Mg Tab) 40 mg PO HS [place] Stop: 07/31/20 20:59 Last Admin: 07/02/20 20:20 Dose: 40 mg Documented by: Diclofenac Sodium (Diclofenac Sod 1% Gel 100 Gm Tube) 2 gm EXT BID [facility] Stop: 08/02/20 11:14 Hydromorphone HCl (Hydromorphone Inj 0.5 Mg/0.5 Ml Syr) 0.5 mg IV Q4H PRN PRN Reason: Pain Stop: 07/15/20 16:31 Last Admin: 07/02/20 23:16 Dose: 0.5 mg Documented by: Levothyroxine Sodium (Levothyroxine Sodium 25 Mcg Tablet) 25 mcg PO DAILYBB [facility] Stop: 08/01/20 06:29 Last Admin: 07/03/20 06:31 Dose: 25 mcg Documented by: Lidocaine (Lidocaine 5% 1 Patch) 1 patch TD QAM [facility] Stop: 07/31/20 10:14 Last Admin: 07/03/20 09:01 Dose: 1 patch Documented by: Miscellaneous (Remove Lidoderm Patch) 1 ea N/A DAILY@2100 [facility] Stop: 07/31/20 20:59 Last Admin: 07/02/20 20:22 Dose: 1 ea Documented by: Multivitamins/Minerals (Calcium 600mg + Vit D 400 Iu Tab) 1 tab PO BID [facility] Stop: 07/31/20 20:59 Last Admin: 07/03/20 08:13 Dose: 1 tab Documented by: Ondansetron HCl (Ondansetron Inj 2 Mg/Ml 2 Ml Vial) 4 mg IV Q6H PRN PRN Reason: Nausea Stop: 07/31/20 16:31 Last Admin: 07/01/20 20:00 Dose: 4 mg Documented by: Oxycodone HCl (Oxycodone Hcl Ir 5 Mg Tab (Immediate Release)) 5 mg PO Q4H PRN PRN Reason: Pain Stop: 07/16/20 17:24 Last Admin: 07/03/20 08:12 Dose: 5 mg Documented by: Pantoprazole Sodium (Pantoprazole 40 Mg Tab) 40 mg PO BID [facility] Stop: 07/31/20 20:59 Last Admin: 07/03/20 08:13 Dose: 40 mg Documented by: Polyethylene Glycol (Polyethylene (Miralax) 17 Gm Pack) 17 gm PO DAILY PRN PRN Reason: Constipation Stop: 07/31/20 16:31 Last Admin: 07/02/20 15:53 Dose: 17 gm Documented by: Vitamin D (Cholecalciferol 1,000 Units 25 Mcg Tab) 1,000 units PO QAM [facility] Stop: 08/01/20 08:59 Last Admin: 07/03/20 08:13 Dose: 1,000 units Documented by: (1) Osteoporosis Osteoporosis type: unspecified Presence of current pathological fracture: unspecified Qualified Code(s): M81.0 - Age-related osteoporosis without current pathological fracture
--- NOTE | 2020-07-03 11:40 | Discharge Summary ---
Date of Service July 04, 2020 Pt discharged on 07/04/2020 Admission HPI Per Admitting Provider This is a 74yo F with a PMH of osteoporosis, hypothyroidism, and other medical problems listed below who presents with worsening back pain over the past 3 days. Patient with history of kyphoplasty to T1 in 2018 at [facility] after developing acute back pain with compression fracture of L1. Back pain recurred in April of this year and patient was found to have compression fracture of T8 and underwent T8 kyphoplasty by Dr. Bethea at [facility]. Pain improved initially but worsened again over the weekend. Pain is in lower R back and upper buttocks and denies radiation across spine or down RLE. Exacerbated with movement. Slight improvement with ice and alternating Aleve and extra strength tylenol. Was seen by ortho spine group earlier today with and was found to have an acute to subacute appearing compression fracture of L3 with mild to moderate loss of height and retropulsed fragments up to 5 mm and age indeterminate severe compression fracture of T5 with 75% loss of vertebral body height and minimal retropulsion of 3 mm. Does have known history of osteoporosis and has been on alendronate for past 15 years. Denies fever, chills, lightheadedness, headache, chest pain, SOB, nausea, vomiting, abdominal pain, dysuria, diarrhea or constipation. Per chart review, history of IgM lambda monoclonal gammopathy per 05/06/20 lab work. Admission Exam Per Admitting Provider General Appearance: WD/WN, vitals as above, NAD, sitting up in bed, pleasant, in acute pain Head: normocephalic, atraumatic Eyes: normal inspection, PERRL, conjunctivae normal, anicteric sclerae ENT: external ear and nose normal, oropharynx normal Neck: normal visual inspection, trachea midline, no thyromegaly Respiratory: normal respiratory effort, lungs clear to auscultation, no wheeze, rales, rhonchi. No accessory muscle use Cardiovascular: regular rate, rhythm, no murmur appreciated, normal peripheral pulses, no BLE edema. Vessels: no JVD Chest: normal inspection of chest Abdomen/GI: normal bowel sounds, soft, nontender, no hepatosplenomegaly Extremities/Musculoskeletal: TTP at R lumbar spine extending down to PSIS. No cyanosis or clubbing, extremities motor strength 5/5 Neurologic: PERRL, EOMI, accommodation nl, no face palsy, no dysarthria, CN's II-XI intact bilaterally and moves all extremities Psychiatric: A+Ox3, euthymic affect Skin: no rashes, normal color, warm/dry Principal Diagnosis Back pain, vertebral fracture Discharge Exam General Appearance: WD/WN, NAD, in no acute distress Head: normocephalic, atraumatic Eyes: normal inspection, PERRL, EOMI, conjunctivae normal, anicteric sclerae ENT: external ear and nose normal, oropharynx normal Neck: normal visual inspection, trachea midline, no thyromegaly Respiratory: normal respiratory effort, lungs clear to auscultation, no wheeze, rales, rhonchi. No accessory muscle use Cardiovascular: regular rate, rhythm, no murmur appreciated, normal peripheral pulses, no BLE edema. Vessels: no JVD Chest: normal inspection of chest Abdomen/GI: normal bowel sounds, soft, nontender Extremities/Musculoskeletal: Moves extremities spontaneously Neurologic: PERRL, EOMI,no face palsy, no dysarthria, CN's II-XI intact bilaterally and moves all extremities Psychiatric: A+Ox3, euthymic affect Skin: no rashes, normal color, warm/dry Discharge Data Allergies Allergy/AdvReac Type Severity Reaction Status Date / Time clarithromycin [From Biaxin] Allergy Severe Swelling Verified 07/01/20 11:13 of Lip/Tongue/Throat Consultations 07/01/20 12:49 Consult Orthopedic Surgery Stat 07/01/20 13:08 ED Decision to Admit Stat 07/01/20 16:32 Consult Orthopedic Surgery Routine Ordered Studies 07/01/20 10:12 CT abd pelvis IV con only Stat IMPRESSION: 1. There are no acute infectious or inflammatory findings in the abdomen or pelvis. 2. There is an acute to subacute appearing compression fracture of L3 with mild to moderate loss of height and retropulsed fragments up to 5 mm. 3. Additional chronic appearing thoracolumbar compression deformities as above with evidence of previous vertebroplasty. 4. No destructive bony lesion is identified to suggest pathologic fracture. Correlation with the patient's medical/oncological history will be required. 5. Right-sided nephrolithiasis. 6. Bladder distention. 7. Colonic diverticulosis without CT evidence of acute diverticulitis. 8. Additional findings in full report. CT chest diagnostic w con Stat IMPRESSION: 1. No acute process within the chest. 2. Multiple thoracic and lumbar spine compression fractures better depicted on the spine CTs. Please see this report for further description. 3. Moderate sized hiatal hernia. 4. Mild cardiomegaly. CT lumbar spine w con Stat IMPRESSION: 1. There are no acute infectious or inflammatory findings in the abdomen or pelvis. 2. There is an acute to subacute appearing compression fracture of L3 with mild to moderate loss of height and retropulsed fragments up to 5 mm. 3. Additional chronic appearing thoracolumbar compression deformities as above with evidence of previous vertebroplasty. 4. No destructive bony lesion is identified to suggest pathologic fracture. Correlation with the patient's medical/oncological history will be required. 5. Right-sided nephrolithiasis. 6. Bladder distention. 7. Colonic diverticulosis without CT evidence of acute diverticulitis. 8. Additional findings in full report. CT thoracic spine w con Stat IMPRESSION: 1. Age indeterminate severe compression fracture of T5 with 75% loss of vertebral body height and minimal retropulsion of 3 mm. 2. Old T8 and L1 compression fracture status post vertebroplasty at these [facility]. 3. Mild concavity of the inferior endplate of T12. Hospital Course (1) Intractable back pain: (2) Compression fracture: This is a 74yo F with a PMH of osteoporosis, hypothyroidism, and other medical problems listed below who presents with worsening back pain over the past 3 days and was found to have compression fractures at L3 and L5. History of kyphoplasty to T1 in 2018 at [facility] after developing acute back pain with compression fracture of L1 and compression fracture of T8 and underwent T8 kyphoplasty in April [address] Bethea at [facility] Presenting with worsening pain over the weekend, sent from ortho spine for further evaluation Thoracic spine CT with age indeterminate severe compression fracture of T5 with 75% loss of vertebral body height and minimal retropulsion of [address] with an acute to subacute appearing compression fracture of L3 with mild to moderate loss of height and retropulsed fragments up to [address] Bethea of ortho spine to evaluate patient - suspect she will heal appropriately without surgical intervention as her pain is controlled with oral pain medications at this time. Had a lengthy discussion with this patient regarding surgery. We both agree we will try to avoid another procedure as long as her pain is controlled. She understands if pain becomes intractable again we may have to consider kyphoplasty. This point I recommend she use a walker to ambulate lift no more than 5 pounds. Pain control (3) Osteoporosis: Follows with rheum. On Prolia for 15 years. Also supplementing with Ca and vitamin D Repeat vitamin D levels (4) IgM lambda monoclonal gammopathy: Per chart review, history of IgM lambda monoclonal gammopathy per 05/06/20 lab work Patient without knowledge and no evidence of follow up to lab work, per chart review Current workup without lytic lesions on imaging, renal function wnl, normal calcium. SPEP, UPEP pending Would recommend hematology follow up (5) Hypothyroidism: Continue levothyroxine (6) Dyslipidemia: Continue atorvastatin DVT Ppx: SCDs Code status: FULL PCP: Dr. Bo Dispo: med/surg. Plan to return home. Total Time Total Time Spent Total Time Spent (In Minutes): 35 Total Time Includes: Examination of the Patient, Discharge Planning, Medication Reconciliation and Communication With Other Providers Discharge Plan Discharge Items Patient Disposition: Home - Self-Care Reason For Visit: INTRACTABLE BACK PAIN, COMPRESSION FRACTURES Discharge Diagnosis: Back pain, vertebral fracture Activity: Per Instructions section Activity Comment: Walk with a walker, do not lift anything heavier than 5 pounds Lifting: No more than 5 pounds Non-emergency contact: Primary Care Provider and Surgeon Call non-emergency contact if: you have any medication questions and your symptoms worsen Follow-up/Referrals: Caro Bo DO [Primary Care Provider] - 07/10/20 10:40 am (Date & Time 07/10/2020 10:40 AM Provider Caro Bo DO [facility] ) Diet: Regular Addtl Attending Provider Instructions: Follow up with your primary care doctor, the appointment was scheduled for you for July 10. At that time, results of labs, SPEP, UPEP, should be available. You may need further referral to hematology/oncology. As discussed with Dr. Bethea, do not lift anything heavier than 5 pounds, and walk with a walker. Follow-up with Dr. Bethea as needed, you can contact him at the [facility] [place]. For pain you can use lidocaine patches, Voltaren gel, Tylenol and oxycodone tablets. Prescription will be sent to your pharmacy. You can obtain Tylenol [id number], max daily dose is 3000 mg. Lidocaine patches could also be obtained [id number], often you can find them under the name of Salbrysonpas. Pending Studies at Discharge: Yes Studies:: ANAHI GONZALEZ Stand-Alone Forms: My [facility], Smoking Cessation Medications and DC Order Prescriptions: New acetaminophen 325 mg Tablet 650 mg PO Q4H PRN (Reason: mild pain (scale score 1-4)) Qty: 20 RF: 0 diclofenac sodium [Voltaren] 1 % Gel 2 g EXT BID Qty: 50 RF: 0 oxycodone 5 mg Tablet 5 mg PO Q4H PRN (Reason: pain (scale score 7-10)) Qty: 14 RF: 0 lidocaine 5 % Adhesive Patch,Medicated 1 patch transdermal QAM Qty: 15 RF: 0 Continued atorvastatin [Lipitor] 40 mg Tablet 40 mg PO HS RF: 0 polyethylene glycol 3350 [Miralax] 17 gram Powder In Packet 17 g PO DAILY PRN (Reason: Constipation) RF: 0 levothyroxine 25 mcg Tablet 25 mcg PO QAM RF: 0 calcium carbonate-vitamin D3 [Calcium 500 + D] 500 mg(1,250mg) -200 unit Tablet 1 tab PO BID RF: 0 omeprazole 20 mg Capsule,Delayed Release(Dr/Ec) 20 mg PO BID RF: 0 cholecalciferol (vitamin D3) [Vitamin D3] 25 mcg (1,000 unit) Tablet 25 mcg PO QAM RF: 0 [place] 1 spray NA QAM RF: 0 Prolia 60 mg/mL Syringe 60 mg SUBCUT UD RF: 0 Discharge Orders: Discharge Order (Routine); Ordered 07/04/20 Ordered By: Storm Celis Admission Data Admit Date/Time: 07/01/20 14:40 Attending Provider: Storm Celis Admit Provider: Dg Lim Primary Care Provider: Caro Bo Other Providers: Suleiman Bethea ; Dg Lim Other Interventions: Discharge Summary Assessment (RN) Last Done: 07/04/20 14:17
[2020-07-03] MEDS: DICLOFENAC SOD 1% GEL 100 GM TUBE EXT SCH ×2 (12:00→21:23)
[2020-07-03] MEDS ORDERED: CALCIUM CARBONATE 500 MG CHEWABLE TAB PO PRN (16:13)
[2020-07-03] MEDS: ATORVASTATIN 40 MG TAB PO SCH (21:23)
[2020-07-03] MEDS: POLYETHYLENE (MIRALAX) 17 GM PACK PO PRN (21:51)
[2020-07-04] MEDS: oxyCODONE HCL IR 5 MG TAB (IMMEDIATE RELEASE) PO PRN ×2 (01:21→13:58)
[2020-07-04 06:09] LABS: Hematocrit (blood only) 36.3 % (37-47); Hemoglobin 11.5 g/dL (12.0-16.0); Mean Corpuscular Hemoglobin 29.9 pg (25-34); Mean Corpuscular Hgb Conc 31.7 g/dL (32-36); Mean Corpuscular Volume 94.5 fL (80-100); Mean Platelet Volume 9.7 fL (7.4-10.4); Platelet Count 274 K/uL (130-400); RDW Standard Deviation 48.7 fL (36.4-46.3); Red Blood Count 3.84 M/uL (4.2-5.4); White Blood Count 10.02 K/uL (4.8-10.8)
[2020-07-04] MEDS: LEVOTHYROXINE SODIUM 25 MCG TABLET PO SCH (06:15)
[2020-07-04 06:35] LABS: Calcium 8.8 mg/dl (8.5-10.1); Creatinine Clr Calc Pharmacy 74.7 ml/min; Est GFR (African American) 106.9 ml/min; Est GFR (Non-African American) 92.2 ml/min
[2020-07-04 06:45] LABS: Creatinine Ur 20 mg/dL (20-275); Protein, Urine Random <4 mg/dL (5-24); Ur Protein/Creat Ratio mg/g NOTE mg/g creat (21-161); Urine Abnormal Protein Band 1 DNR mg/dL (NONE DETECTED); Urine Abnormal Protein Band 2 DNR mg/dL (NONE DETECTED); Urine Abnormal Protein Band 3 DNR mg/dL (NONE DETECTED); Urine Protein/Creatinine Ratio NOTE (0.021-0.161)
[2020-07-04] MEDS: CALCIUM 600MG + VIT D 400 IU TAB PO SCH (08:32)
[2020-07-04] MEDS: LIDOCAINE 5% 1 PATCH TD SCH (08:32)
[2020-07-04] MEDS: DICLOFENAC SOD 1% GEL 100 GM TUBE EXT SCH (08:32)
[2020-07-04] MEDS: CHOLECALCIFEROL 1,000 UNITS 25 MCG TAB PO SCH (08:32)
[2020-07-04] MEDS: PANTOprazole 40 MG TAB PO SCH (09:53)
--- NOTE | 2020-07-04 13:17 | Hospitalist Progress Note ---
Date of Service July 04, 2020 Assessment & Plan (1) Intractable back pain: (2) Compression fracture: This is a 74yo F with a PMH of osteoporosis, hypothyroidism, and other medical problems listed below who presents with worsening back pain over the past 3 days and was found to have compression fractures at L3 and L5. History of kyphoplasty to T1 in 2019 at [facility] after developing acute back pain with compression fracture of L1 and compression fracture of T8 and underwent T8 kyphoplasty in April [address] Btehea at [facility] Presenting with worsening pain over the weekend, sent from ortho spine for further evaluation Thoracic spine CT with age indeterminate severe compression fracture of T5 with 75% loss of vertebral body height and minimal retropulsion of [address] with an acute to subacute appearing compression fracture of L3 with mild to moderate loss of height and retropulsed fragments up to [address] Bethea of ortho spine to evaluate patient - suspect she will heal appropriately without surgical intervention as her pain is controlled with oral pain medications at this time. Had a lengthy discussion with this patient regarding surgery. We both agree we will try to avoid another procedure as long as her pain is controlled. She understands if pain becomes intractable again we may have to consider kyphoplasty. This point I recommend she use a walker to ambulate lift no more than 5 pounds. Pain control (3) Osteoporosis: Follows with rheum. On Prolia for 15 years. Also supplementing with Ca and vitamin D Repeat vitamin D levels (4) IgM lambda monoclonal gammopathy: Per chart review, history of IgM lambda monoclonal gammopathy per 05/06/20 lab work Patient without knowledge and no evidence of follow up to lab work, per chart review Current workup without lytic lesions on imaging, renal function wnl, normal calcium. SPEP, UPEP pending Would recommend hematology follow up (5) Hypothyroidism: Continue levothyroxine (6) Dyslipidemia: Continue atorvastatin DVT Ppx: SCDs Code status: FULL PCP: Dr. Bo Dispo: med/surg. Plan to return home. Admission and Anticipated Discharge Date Admission Date: July 01, 2020 Subjective Patient seen in follow-up of back pain, vertebral fracture Currently she is sitting up in the chair, in no acute distress, says that she feels much better Denies any fevers, chills, chest pain, shortness of breath, abdominal pain, leena sea or vomiting Patient discussed w/ Dr. Bethea- christel recommended surgery at this time, pain well controlled with pain medications at this time. Review of Systems Review of Systems: All systems reviewed & are unremarkable except as noted in HPI & below Constitutional: no fever and no chills Respiratory: no cough and no dyspnea Cardiovascular: no chest pain and no palpitations Gastrointestinal: no abdominal pain and no vomiting Physical Exam Physical Exam: General Appearance: WD/WN, NAD, in no acute distress Head: normocephalic, atraumatic Eyes: normal inspection, PERRL, EOMI, conjunctivae normal, anicteric sclerae ENT: external ear and nose normal, oropharynx normal Neck: normal visual inspection, trachea midline, no thyromegaly Respiratory: normal respiratory effort, lungs clear to auscultation, no wheeze, rales, rhonchi. No accessory muscle use Cardiovascular: regular rate, rhythm, no murmur appreciated, normal peripheral pulses, no BLE edema. Vessels: no JVD Chest: normal inspection of chest Abdomen/GI: normal bowel sounds, soft, nontender Extremities/Musculoskeletal: Moves extremities spontaneously Neurologic: PERRL, EOMI,no face palsy, no dysarthria, CN's II-XI intact bilaterally and moves all extremities Psychiatric: A+Ox3, euthymic affect Skin: no rashes, normal color, warm/dry Results & Data Results & Data ([facility]) Vital Signs (Past 12 Hours) Vital Signs Temp Pulse Resp BP Pulse Ox 07/04/20 07:40 36.8 C 75 18 120/70 91 Laboratory Results 07/04/20 07/04/20 07/01/20 Range/Units 05:45 05:45 12:16 WBC 10.02 (4.8-10.8) K/uL RBC 3.84 L (4.2-5.4) M/uL Hgb 11.5 L (12.0-16.0) g/dL Hct 36.3 L (37-47) % MCV 94.5 (80-100) fL MCH 29.9 (25-34) pg MCHC 31.7 L (32-36) g/dL RDW Std Deviation 48.7 H (36.4-46.3) fL RDW Coeff of Daniel 14.0 (11.5-14.5) % Plt Count 274 (130-400) K/uL MPV 9.7 (7.4-10.4) fL Sodium 139 (136-145) mmol/L Potassium 4.0 (3.5-5.1) mmol/L Chloride 107 (98-107) mmol/L Carbon Dioxide 31 (21-32) mmol/L Anion Gap 1.0 L (3-11) BUN 14 (7-18) mg/dl Creatinine 0.53 L (0.6-1.2) mg/dl Est Cr Clr Drug Dosing 74.7 ml/min Est GFR ( Amer) 106.9 ml/min Est GFR (Non-Af Amer) 92.2 ml/min BUN/Creatinine Ratio 27.0 H (10-20) Glucose 87 (70-99) mg/dl Calcium 8.8 (8.5-10.1) mg/dl U Random Total Protein <4 L (5-24) mg/dL Ur Creatinine mg/dL 20 (20-275) mg/dL Protein/Creatinin Ratio NOTE (0.021-0.161) Urine Albumin (%) 100 % U Obdkd-2-Turekrif (%) 0 % U Gcian-0-Lchzalkz (%) 0 % U Beta Globulin (%) 0 % U Gamma Globulin (%) 0 % U Abnormal Prot Band 1 DNR (NONE DETECTED) mg/dL U Abnormal Prot Band 2 DNR (NONE DETECTED) mg/dL U Abnormal Prot Band 3 DNR (NONE DETECTED) mg/dL Urine PEP Interpret SEE NOTE Medications Administered Current Inpatient Medications Acetaminophen (Acetaminophen 325 Mg Tab) 650 mg PO Q4H PRN PRN Reason: pain/fever Stop: 07/31/20 16:31 Atorvastatin Calcium (Atorvastatin 40 Mg Tab) 40 mg PO HS [place] Stop: 07/31/20 20:59 Last Admin: 07/03/20 21:23 Dose: 40 mg Documented by: Calcium Carbonate (Calcium Carbonate 500 Mg Chewable Tab) 500 mg PO Q4H PRN PRN Reason: Indigestion Stop: 08/02/20 16:12 Last Admin: 07/03/20 21:51 Dose: 500 mg Documented by: Diclofenac Sodium (Diclofenac Sod 1% Gel 100 Gm Tube) 2 gm EXT BID [place] Stop: 08/02/20 11:14 Last Admin: 07/04/20 08:32 Dose: 2 gm Documented by: Hydromorphone HCl (Hydromorphone Inj 0.5 Mg/0.5 Ml Syr) 0.5 mg IV Q4H PRN PRN Reason: Pain Stop: 07/15/20 16:31 Last Admin: 07/02/20 23:16 Dose: 0.5 mg Documented by: Levothyroxine Sodium (Levothyroxine Sodium 25 Mcg Tablet) 25 mcg PO DAILYBB [facility] Stop: 08/01/20 06:29 Last Admin: 07/04/20 06:15 Dose: 25 mcg Documented by: Lidocaine (Lidocaine 5% 1 Patch) 1 patch TD QAM [facility] Stop: 07/31/20 10:14 Last Admin: 07/04/20 08:32 Dose: 1 patch Documented by: Miscellaneous (Remove Lidoderm Patch) 1 ea N/A DAILY@2100 [facility] Stop: 07/31/20 20:59 Last Admin: 07/03/20 21:23 Dose: 1 ea Documented by: Multivitamins/Minerals (Calcium 600mg + Vit D 400 Iu Tab) 1 tab PO BID [facility] Stop: 07/31/20 20:59 Last Admin: 07/04/20 08:32 Dose: 1 tab Documented by: Ondansetron HCl (Ondansetron Inj 2 Mg/Ml 2 Ml Vial) 4 mg IV Q6H PRN PRN Reason: Nausea Stop: 07/31/20 16:31 Last Admin: 07/01/20 20:00 Dose: 4 mg Documented by: Oxycodone HCl (Oxycodone Hcl Ir 5 Mg Tab (Immediate Release)) 5 mg PO Q4H PRN PRN Reason: Pain Stop: 07/16/20 17:24 Last Admin: 07/04/20 01:21 Dose: 5 mg Documented by: Pantoprazole Sodium (Pantoprazole 40 Mg Tab) 40 mg PO BID [facility] Stop: 07/31/20 20:59 Last Admin: 07/04/20 09:53 Dose: 40 mg Documented by: Polyethylene Glycol (Polyethylene (Miralax) 17 Gm Pack) 17 gm PO DAILY PRN PRN Reason: Constipation Stop: 07/31/20 16:31 Last Admin: 07/03/20 21:51 Dose: 17 gm Documented by: Vitamin D (Cholecalciferol 1,000 Units 25 Mcg Tab) 1,000 units PO QAM [facility] Stop: 08/01/20 08:59 Last Admin: 07/04/20 08:32 Dose: 1,000 units Documented by: (1) Osteoporosis Osteoporosis type: unspecified Presence of current pathological fracture: unspecified Qualified Code(s): M81.0 - Age-related osteoporosis without current pathological fracture
[2020-07-07 12:16] LABS: Albumin 3.5 g/dL (3.8-4.8); Alpha 1 Globulin 0.3 g/dL (0.2-0.3); Alpha 2 Globulin 0.9 g/dL (0.5-0.9); Beta-1-Globulin 0.3 g/dL (0.4-0.6); Beta-2-Globulin 0.8 g/dL (0.2-0.5); Gamma Globulin 0.9 g/dL (0.8-1.7); Monoclonal Protein Band 1 DNR g/dL (NONE DETECTED); Monoclonal Protein Band 2 DNR g/dL (NONE DETECTED); Monoclonal Protein Band 3 DNR g/dL (NONE DETECTED); Total Protein 6.7 g/dL (6.1-8.1)
== END 2020-07-04 15:05 | disposition home or self-care (01) | DRG 544 ==
LOC: ED 09:46 → SUATTDRO 14:40 → 3N 14:40